=== PATIENT | male | born 1995 | race Caucasian/White ===

== ENCOUNTER 2019-10-16 21:08 | Inpatient (IN) | payer SELFPAY ==
[2019-10-16 21:12] VITALS: BP 143/111; PULSE 100; RESP 18; TEMP 36.7; O2SAT 100; BMI 21.7
--- NOTE | 2019-10-16 21:28 | PC.NURSE ---
Patient placed in psychiatric room in ER, all items removed from room for safety of patient. casework supervisor notified. No sitters at this time, transfill technician sitting with patient for his safety.
--- NOTE | 2019-10-16 21:32 | PC.NURSE ---
EKG done at 2126 and shown to ER doctor.
--- NOTE | 2019-10-16 21:33 | W.ED.PSYCH ---
HPI - Psych General: Chief Complaint: Psychiatric Symptoms Stated Complaint: SI Time Seen by Provider: 10/16/19 21:33 Source: patient History of Present Illness: HPI Narrative: 24-year-old male walked in on his own and says that he wants help because he feels like he does not want to live anymore. He told the triage nurse that he wanted to hang himself. The triage nurse will do an affidavit. He told me he did not have a plan but he is tried to hang himself in the past. He admits to IV drug use pot and does smoke cigarettes. Denies any hallucinations. Has not been on any prescription medication for many months. Has had a previous admission for suicidal ideations and on chart review appears that his plan was to hang himself. MD complaint: suicidal ideation Associated symptoms: Reports suicidal ideation Review of Systems General: Reports: 10 or more systems reviewed and unremarkable except in HPI and below Const: Denies: fever Eyes: Denies: change in vision ENMT: Denies: throat pain Card: Denies: chest pain Resp: Denies: shortness of breath GI: Denies: abdominal pain, nausea, vomiting or change in bowel habits Musc: Denies: muscle weakness Skin/Breast: Denies: rash Neuro: Denies: headache Psych: Reports: hopelessness and suicidal ideation Endo: Denies: excessive urination Misael/Lymph: Denies: easy bruising or easy bleeding All/Imm: Denies: hives PFSH ED PFSH: Social History Smoking and tobacco status: current every day smoker Physical Exam Const: COMMON NORMALS: no apparent distress, oriented x3, alert and well nourished HENMT: COMMON NORMALS: normocephalic and external nose normal HEAD & SCALP: normocephalic NOSE: external nose normal MOUTH: no trismus Eye: COMMON NORMALS: EOMs intact bilaterally and conjunctivae normal CONJUNCTIVA: Yes conjunctivae normal Neck/C-Spine: COMMON NORMALS: full ROM, no lymphadenopathy and supple CERVICAL SPINE: Yes cervical ROM normal Lymph: LYMPHATIC: no lymphadenopathy noted Resp: COMMON NORMALS: normal respiratory effort, no retractions, no use of accessory muscles and clear to auscultation bilaterally EFFORT & INSPECTION: Yes able to speak in complete sentences AUSCULTATION: clear to auscultation bilaterally Cardio: COMMON NORMALS: regular rate and regular rhythm RATE: regular rate RHYTHM: regular rhythm GI: COMMON NORMALS: normal to inspection, nondistended, normoactive bowel sounds, soft to palpation, non-tender and no masses INSPECTION: Yes normal to inspection AUSCULTATION: Yes normoactive bowel sounds PALPATION: Yes soft, No guarding and No rigid Back/Pelvis: OTHER: Normal range of motion Extremity: GENERAL: Yes normal exam except as noted Neuro: COMMON NORMALS: oriented x3 and CN's II-XII intact bilaterally SENSORIUM/ORIENTATION: Yes alert SPEECH: speech normal Psych: COMMON NORMALS: mental status grossly normal and speech normal ACTIVITY/MOTOR BEHAVIOR: Yes avoids eye contact SPEECH: Yes normal speech MOOD & AFFECT: Yes depressed mood Skin: COMMON NORMALS: no rashes or lesions noted GENERAL SKIN EXAM: no rashes or lesions noted MDM - Psych MDM Narrative: Medical decision making narrative: Discussed with Dr. Dalton will admit. Patient is medically clear and stable for admission from my point of view. Patient is voluntary however there is an affidavit from the triage nurse on the chart. Lab Data: Labs: Lab Results 10/16/19 10/16/19 Range/Units 21:52 21:52 WBC 11.2 H (4.0-10.0) 10^3/ uL RBC 4.48 (4.1-5.3) 10^6/u L Hgb 12.4 (11.7-16.6) g/dL Hct 38.9 L (42.0-52.0) % MCV 86.8 (80-94) fL MCH 27.7 L (28.0-34.0) pg MCHC 31.9 (30.0-36.0) g/dL RDW 14.2 (12.1-15.1) % Plt Count 332 (130-400) 10^3/c mm MPV 10.4 (7.4-10.4) fL Neut % (Auto) 62.8 % Lymph % (Auto) 26.5 % [place] % (Auto) 6.6 % Eos % (Auto) 2.8 % Baso % (Auto) 0.6 % Neut # (Auto) 7.1 (1.8-7.7) 10^3/u L Lymph # (Auto) 3.0 (0.8-4.8) 10^3/u L [place] # (Auto) 0.7 (0.2-0.9) 10^3/u L Eos # (Auto) 0.3 (0.0-0.8) 10^3/u L Baso # (Auto) 0.1 (0.0-0.1) 10^3/u L Nucleated RBC % (a uto) 0 % Nucleated RBCs # 0.0 /100WBC Sodium 143 (136-145) mmol/L Potassium 4.1 (3.5-5.1) mmol/L Chloride 105 (98-107) mmol/L Carbon Dioxide 27 (22-29) mmol/L Anion Gap 15.1 (5-19) BUN 12 (6-20) mg/dL Creatinine 0.9 (0.7-1.2) mg/dL GFR Calculation 102.8 (90-130) mL/min Glucose 121 H (65-115) mg/dL Calculated Osmolal ity 293 (285-295) mOsm/k g Calcium 9.1 (8.5-10.5) mg/dL Total Bilirubin 0.2 (0.15-1.2) mg/dL AST 26 (0-40) U/L ALT 36 (0-41) U/L Alkaline Phosphata se 103 (40-130) IU/L Total Protein 6.7 (6.6-8.7) g/dL Albumin 3.7 (3.5-5.2) g/dL Globulin 3.0 (1.3-4.6) g/dL TSH 1.76 (0.27-4.20) uIU/ mL Ethyl Alcohol < 10 (0-10) mg/dL EKG Data^: EKG 1: Attestation: I personally reviewed and interpreted this EKG as follows: EKG interpretation date: 10/16/19 EKG interpretation time: 21:44 Interpretation: Sinus rhythm rate 94 normal VA interval Discharge Plan Discharge Patient Disposition: Admitted As Inpatient Clinical Impression: Suicidal ideation Condition: Stable Prescriptions: No Action Cough and Cold [phone] mg Capsule 2 cap PO Q4H PRN (Reason: COUGH/CONGESTION) RF: 0 Coding Level of Care Code ED Rn Telephone Triage for Chg Fwd Exam Comprehensive
[2019-10-16 22:00] LABS: Basophils # 0.1 10^3/uL (0.0-0.1); Basophils % 0.6 %; Eosinophils # 0.3 10^3/uL (0.0-0.8); Eosinophils % 2.8 %; Hematocrit 38.9 % (42.0-52.0); Hemoglobin 12.4 g/dL (11.7-16.6); Lymphocytes % 26.5 %; Mean Corpuscular HGB Conc 31.9 g/dL (30.0-36.0); Mean Corpuscular Hemoglobin 27.7 pg (28.0-34.0); Mean Corpuscular Volume 86.8 fL (80-94); Mean Platelet Volume 10.4 fL (7.4-10.4); Monocytes # 0.7 10^3/uL (0.2-0.9); Monocytes % 6.6 %; Neutrophils # 7.1 10^3/uL (1.8-7.7); Neutrophils % 62.8 %; Nucleated Red Blood Cells % 0 %; Platelet Count 332 10^3/cmm (130-400); Red Blood Count 4.48 10^6/uL (4.1-5.3); Red Cell Distribution Width 14.2 % (12.1-15.1); White Blood Count 11.2 10^3/uL (4.0-10.0)
[2019-10-16 22:08] VITALS: BP 131/87; PULSE 107; RESP 19; TEMP 36.8; O2SAT 99
[2019-10-16 22:24] LABS: Alanine Aminotransferase 36 U/L (0-41); Albumin Level 3.7 g/dL (3.5-5.2); Alcohol Level < 10 mg/dL (0-10); Alkaline Phosphatase 103 IU/L (40-130); Anion Gap 15.1 (5-19); Aspartate Amino Transferase 26 U/L (0-40); Blood Urea Nitrogen 12 mg/dL (6-20); Calcium 9.1 mg/dL (8.5-10.5); Carbon Dioxide 27 mmol/L (22-29); Chloride 105 mmol/L (98-107); Creatinine Clr Calc Pharmacy 134.1489; Glomerular Filtration Rate 102.8 mL/min (90-130); Glucose 121 mg/dL (65-115); Osmolality Calculated 293 mOsm/kg (285-295); Potassium 4.1 mmol/L (3.5-5.1); Sodium 143 mmol/L (136-145); Thyroid Stimulating Hormone 1.76 uIU/mL (0.27-4.20); Total Bilirubin 0.2 mg/dL (0.15-1.2); Total Protein 6.7 g/dL (6.6-8.7)
[2019-10-16 22:42] LABS: Amphetamines Screen Urine Positive (Negative); Barbiturates Screen Urine Negative (Negative); Benzodiazepines Screen Urine Negative (Negative); Cocaine Screen Urine Negative (Negative); Opiate Screen Urine Negative (Negative); PCP Screen Urine Negative (Negative); THC Screen Urine Positive (Negative)
[2019-10-16] MEDS: acetaminophen 325 mg Tablet 650 MG PO (22:49)
[2019-10-17 06:00] VITALS: BP 128/80; PULSE 73; RESP 18; TEMP 36.6; O2SAT 99
--- NOTE | 2019-10-17 08:20 | P.HP_ITS ---
Providers/Chief Complaint Admitting Physician: Giorgi Dalton MD Chief Complaint: SI HPI NPU History of Present Illness 24-year-old male who walked in on his own desiring help because he does not want to live anymore. He told the triage nurse that he wanted to hang himself. The triage nurse will do an affidavit. He told the ED physician he did not have a plan but he has tried to hang himself in the past. 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 Has not been on any prescription medication for many months. Has had a previous admission for suicidal ideation and on chart review appears that his plan was to hang himself. The patient says today he had the same plan. He feels hopeless. 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 He may be exhibiting psychotic symptoms on the job. He says he hears people in [employer] telling him he is crazy and believes that people are following him. For example, he thought that people were outside my office door, which I opened and no one was there. Review of Systems Narrative: Const: Denies: fever Eyes: Denies: change in vision ENMT: Denies: throat pain Card: Denies: chest pain Resp: Denies: shortness of breath GI: Denies: abdominal pain, nausea, vomiting or change in bowel habits Musc: Denies: muscle weakness Skin/Breast: Denies: rash Neuro: Denies: headache Psych: Reports: hopelessness and suicidal ideation Endo: Denies: excessive urination Misael/Lymph: Denies: easy bruising or easy bleeding All/Imm: Denies: hives Urologic symptoms are present. The patient's urine has blood red and smells intent . He denies pain or burning on urination. Microscopic examination confirms this with white cell casts, WBC, RBC and bacteria. Meds NPU Home Medications Medication Instructions Recorded Confirmed Type duvllbwen-SA-IF-acetaminophen 2 cap PO Q4H PRN 10/16/19 10/16/19 History [Cough and Cold] Allergies Allergy/AdvReac Type Severity Reaction Status Date / Time alvarez Allergy ALGY-Anaphy Verified 10/16/19 21:24 laxis alvarez flavor Allergy ALGY-Anaphy Verified 10/16/19 21:24 laxis PFS NPU PFS: Social History Smoking and tobacco status: current every day smoker Other Psychiatric History: Other Psychiatric History: The patient said he was hospitalized for suicidal ideation and depressions in 2016. His psychotic symptoms (auditory hallucinations and ideas of reference) arose some 5 months ago. He has intermittently been on meth. Because his psychotic symptoms are persistent he does not believe the meth, being available intermittently, has anything to do with his psychosis. I respectfully disagree with him Supplemental [facility] Information: The patient states that meth abuse is widespread in his family. Mental Status Exam MSE Comments: This is a 24-year-old male who looks older and presents disheveled and mildly psychotic. Mood is clearly despondent and affect is flat. Thought processes appear to be disorganized and he does have very mild pressure of speech. Psychotic symptoms, such as auditory hallucinations of critical voices telling him he is crazy, plague him. He constantly feels like someone is following him and, during the interview, thought there was someone outside my office door listening to our interview. He was relieved when I opened the door and there was no one there. Cognitive functions actually, absent psychosis, are quite good although it was difficult to formally test. Insight is limited at the moment but he had the judgment to come in to the ED to seek help. He still thinks about hanging in himself but thinks he can keep himself safe in our [place]. I have reviewed this with the nursing staff, who will be watchful. Vitals/I&O/Wt Last Vital Signs Temp 97.9 F 10/17/19 06:00 Pulse 73 10/17/19 06:00 Resp 18 10/17/19 06:00 BP 128/80 10/17/19 06:00 Pulse Ox 99 10/17/19 06:00 Weight last 48 hrs Weight 160 lb Physical Exam Narrative: EXAM NARRATIVE: COMMON NORMALS: no apparent distress, oriented x3, alert and well nourished HENMT: COMMON NORMALS: normocephalic and external nose normal HEAD & SCALP: normocephalic NOSE: external nose normal MOUTH: no trismus Eye: COMMON NORMALS: EOMs intact bilaterally and conjunctivae normal CONJUNCTIVA: Yes conjunctivae normal Neck/C-Spine: COMMON NORMALS: full ROM, no lymphadenopathy and supple CERVICAL SPINE: Yes cervical ROM normal Lymph: LYMPHATIC: no lymphadenopathy noted Resp: COMMON NORMALS: normal respiratory effort, no retractions, no use of accessory muscles and clear to auscultation bilaterally EFFORT & INSPECTION: Yes able to speak in complete sentences AUSCULTATION: clear to auscultation bilaterally Cardio: COMMON NORMALS: regular rate and regular rhythm RATE: regular rate RHYTHM: regular rhythm GI: COMMON NORMALS: normal to inspection, nondistended, normoactive bowel sounds, soft to palpation, non-tender and no masses INSPECTION: Yes normal to inspection AUSCULTATION: Yes normoactive bowel sounds PALPATION: Yes soft, No guarding and No rigid Back/Pelvis: OTHER: Normal range of motion Extremity: GENERAL: Yes normal exam except as noted Neuro: COMMON NORMALS: oriented x3 and CN's II-XII intact bilaterally SENSORIUM/ORIENTATION: Yes alert SPEECH: speech normal Psych: See MSE. Skin: COMMON NORMALS: no rashes or lesions noted GENERAL SKIN EXAM: no rashes or lesions noted Data NPU : 10/16/19 21:52 10/16/19 21:52 A&P Assessment and plan (1) Suicidal ideation: This problem is, of course, very likely meth induced. He needs to be detoxed and pharmacotherapy for his psychosis and depression should be invoked. He will be involved in [facility]. administrative services coordinator will assist in formulating a discharge plan which includes rehab services and psychiatric outpatient aftercare. I have chosen antipsychotics which are inexpensive, very important element in this penniless man. Status: Acute Code(s): R45.851 - Suicidal ideations (2) Methamphetamine abuse: The patient will require rehab. Psychosocial intervention will also be necessary. Status: Acute Code(s): F15.10 - Other stimulant abuse, uncomplicated (3) Major psychotic depression, recurrent: This problem is, of course, very likely meth induced. His recurrent suicidal ideation arises from this. He needs to be detoxed and pharmacotherapy for his psychosis and depression should be invoked. He will be involved in [facility]. administrative services coordinator will assist in formulating a discharge plan which includes rehab services and psychiatric outpatient aftercare. I have chosen antipsychotics which are inexpensive, very important element in this penniless man. Status: Acute Code(s): F33.3 - Major depressive disorder, recurrent, severe with psychotic symptoms Involuntary Hold Information 96 Hour Hold: 96 Hour Involuntary Admission: No Comments: An affidavit for 96-hour hold application was made out by the ED triage nurse. Attestations NPU Medical Necessity Statement*: This man is psychotically depressed. I anticipate 5-7 midnights. Time Spent in Patient Care: Greater than 35 minutes (>than 50% of time spent in counselling and/or direct pt care on unit) . I also did research on pharmacologic agents and patient education. Coding Level of Care Code Acute Duck Bill Operator for Ronni Bazan Diagnoses Suicidal ideation R45.851 Methamphetamine abuse F15.10 Major psychotic depression, recurrent F33.3
[2019-10-17] MEDS: OLANZapine ODT 5 MG TABLET PO ×2 (08:27→14:13)
[2019-10-17] MEDS: sulfamethoxazole-trimeth DS 160-800 mg Tablet 1 TAB PO ×2 (08:27→17:56)
[2019-10-17] MEDS: nicotine 21 mg Patch 1 PATCH TRANSDERMA (08:32)
[2019-10-17] MEDS: fluoxetine 20 mg Capsule PO (09:17)
[2019-10-17 14:00] VITALS: BP 123/78; PULSE 80; RESP 17
[2019-10-17] MEDS: OLANZapine 5 mg TABLET 7.5 MG PO (20:42)
[2019-10-17 22:00] VITALS: BP 132/91; PULSE 71; RESP 15; TEMP 36.4; O2SAT 99
[2019-10-18 06:00] VITALS: BP 135/90; PULSE 79; RESP 16; TEMP 36.6; O2SAT 99
[2019-10-18] MEDS: sulfamethoxazole-trimeth DS 160-800 mg Tablet 1 TAB PO ×2 (08:25→17:31)
[2019-10-18] MEDS: OLANZapine ODT 5 MG TABLET PO (13:14)
[2019-10-18] MEDS: nicotine 21 mg Patch 1 PATCH TRANSDERMA (13:14)
[2019-10-18] MEDS: benztropine 1 mg Tablet PO (13:40)
[2019-10-18 14:00] VITALS: BP 147/82; PULSE 97; RESP 17
--- NOTE | 2019-10-18 14:10 | PM.NPN ---
Subjective NPU Subjective: Interval history: The patient is transformed. He slept?and slept and slept. Now, his mind is clear and the fog has lifted. He knows that recovery is the only option and he plans to continue his care at [facility] with the psychiatric nurse practitioner with whom he had a previous treatment relationship. 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 What with the current epidemiologic situation, that may be on hold as far as [facility] is concerned. In any case he is improved greatly and tomorrow formulation of a discharge plan should be undertaken Medications: Reviewed: Yes Medication Review Details: Current Medications Acetaminophen (Tylenol) 650 mg PO Q4H PRN PRN Reason: MILD PAIN Benztropine Mesylate (Cogentin) 1 mg PO BID PRN PRN Reason: Mild Extrapyramidal symptoms Last Admin: 10/18/19 13:40 Dose: 1 mg Documented by: Camphor/Menthol/Phenol (Blistex) 1 applic TOPICAL Q1H PRN PRN Reason: DRYNESS Diphenhydramine HCl (Benadryl) 50 mg IM ONCE PRN PRN Reason: Severe Extrapyramidal Symptoms Diphenhydramine HCl (Benadryl) 50 mg IM Q4H PRN PRN Reason: Severe Aggression Haloperidol (Haldol) 5 mg PO Q4H PRN PRN Reason: AGITATION Haloperidol Lactate (Haldol Inj) 5 mg IM Q4H PRN PRN Reason: Severe Aggression Hydroxyzine Pamoate (Vistaril) 50 mg PO Q6H PRN PRN Reason: ANXIETY Loperamide HCl (Imodium Capsule) 2 mg PO Q6H PRN PRN Reason: DIARRHEA Lorazepam (Ativan) 2 mg IM Q4H PRN PRN Reason: Severe Aggression Nicotine (Nicoderm 21 Mg Patch) 1 patch TRANSDERMA DAILY PRN PRN Reason: NICOTINE WITHDRAWAL Last Admin: 10/18/19 13:14 Dose: 1 patch Documented by: Nicotine Polacrilex (Nicorette) 2 mg BUCCAL Q2H PRN PRN Reason: NICOTINE WITHDRAWAL Non-Formulary Medication (Lobhkxkww-Ad-Ps-Acetaminophen [Cough And Cold]) 2 cap PO Q4H PRN PRN Reason: COUGH/CONGESTION Olanzapine (Zyprexa Zydis) 5 mg PO Q4H PRN PRN Reason: Agitation/Psychosis Last Admin: 10/18/19 13:14 Dose: 5 mg Documented by: Olanzapine (Zyprexa) 7.5 mg PO BEDTIME GILDA Last Admin: 10/17/19 20:42 Dose: 7.5 mg Documented by: Ondansetron HCl (Zofran) 4 mg PO Q6H PRN PRN Reason: NAUSEA AND VOMITING Trazodone HCl (Desyrel) 50 mg PO BEDTIME PRN PRN Reason: SLEEP Trimethoprim/Sulfamethoxazole (Bactrim Ds) 1 tab PO BID [facility]; Protocol Stop: 10/27/19 08:59 Last Admin: 10/18/19 08:25 Dose: 1 tab Documented by: Mental Status Exam MSE Comments: This is a 24-year-old male who presents at his stated age. He is clean, and neat and well-groomed. Mood is bright and affect is euthymic. Thought processes are integrated and free of racing, blocking or looseness of association. He is clear minded in contradistinction to his foggy mental state yesterday. Speech is of normal rate and volume, without aprosody, dysarthria or pressure. Cognitive functions have reconstituted. There is no confusion or disorientation. He is free of psychotic symptoms such as but not limited to hallucinations, delusions or ideas of reference. He denies suicidal or homicidal ideation, plan or intent. Insight and judgment are returning. Vitals/I&O/Wt Last Vital Signs Temp 97.8 F 10/18/19 06:00 Pulse 79 10/18/19 06:00 Resp 16 10/18/19 06:00 BP 135/90 10/18/19 06:00 Pulse Ox 99 10/18/19 06:00 Weight last 48 hrs Weight 154 lb Weight 160 lb Data NPU : 10/16/19 21:52 10/16/19 21:52 A&P Additional A&P Information Assessment and plan (1) Suicidal ideation: This problem is, of course, very likely meth induced. He is proceeding apace with detox and he is now on olanzapine 7.5 mg p.o. nightly for his psychosis but he does not want to take fluoxetine for his depression. He will be involved in [facility]. business services clerk will assist in formulating a discharge plan which includes rehab services and reinstatement of psychiatric outpatient aftercare. I have chosen an antipsychotic which is inexpensive, a very important element in this penniless man. (2) Methamphetamine abuse: The patient will pursue rehab. Psychosocial intervention will also be necessary. (3) Major psychotic depression, recurrent: This problem is, of course, very likely meth induced. His recurrent suicidal ideation arises from this. In addition to pharmacotherapy the patient will be involved in [facility]. business services clerk will assist in formulating a discharge plan which includes rehab services and psychiatric outpatient aftercare. I have chosen antipsychotics which are inexpensive, very important element in this penniless man. Involuntary Hold Information 96 Hour Hold: 96 Hour Involuntary Admission: No Attestations NPU Medical Necessity Statement*: I anticipate 2 or 3 additional midnights Coding Level of Care Code Acute Paint Mixer Hand for Ronni Bazan
[2019-10-18] MEDS: OLANZapine 5 mg TABLET 7.5 MG PO (21:27)
[2019-10-18] MEDS: acetaminophen 325 mg Tablet 650 MG PO (21:30)
[2019-10-18] MEDS: trazodone 50 mg Tablet PO (21:33)
[2019-10-18 22:00] VITALS: BP 133/91; PULSE 114; RESP 18; TEMP 36.9; O2SAT 99
[2019-10-19 06:00] VITALS: BP 129/83; PULSE 100; RESP 17; TEMP 36.6; O2SAT 98
[2019-10-19] MEDS: sulfamethoxazole-trimeth DS 160-800 mg Tablet 1 TAB PO ×2 (08:46→17:31)
[2019-10-19] MEDS: OLANZapine ODT 5 MG TABLET PO (08:47)
--- NOTE | 2019-10-19 08:47 | PC.NURSE ---
PRN ZYPREXA ZYDIS ZYPREXA ZYDIS 5MG PO PER PATIENT C/O ANXIETY/AGITATION. WILL CONTINUE TO MONITOR FOR MEDICATION EFFECTIVENESS.
--- NOTE | 2019-10-19 09:50 | PC.NURSE ---
PRN ZYPREXA ZYDIS FOLLOW UP MEDICATION EFFECTIVE. NO FURTHER C/O ANXIETY/AGITATION.
--- NOTE | 2019-10-19 10:21 | PM.NPN ---
Subjective NPU Subjective: Interval history: this is my first meeting with this patient. His history was reviewed. Works a positive response to Cymbalta in the past. However he denies symptoms of clinical depression. He says that he is sad and blue and he feels hopeless. He denies suicidal or homicidal ideation or auditory or visual hallucinations. His problem at this point is that he is homeless and unemployed. However he has been good hedonic capacity. He is sleeping well. His main complaint actually is one of chronic pain from tendinitis. Medications: Medication Review Details: Current Medications Acetaminophen (Tylenol) 650 mg PO Q4H PRN PRN Reason: MILD PAIN Benztropine Mesylate (Cogentin) 1 mg PO BID PRN PRN Reason: Mild Extrapyramidal symptoms Last Admin: 10/18/19 13:40 Dose: 1 mg Documented by: Camphor/Menthol/Phenol (Blistex) 1 applic TOPICAL Q1H PRN PRN Reason: DRYNESS Diphenhydramine HCl (Benadryl) 50 mg IM ONCE PRN PRN Reason: Severe Extrapyramidal Symptoms Diphenhydramine HCl (Benadryl) 50 mg IM Q4H PRN PRN Reason: Severe Aggression Haloperidol (Haldol) 5 mg PO Q4H PRN PRN Reason: AGITATION Haloperidol Lactate (Haldol Inj) 5 mg IM Q4H PRN PRN Reason: Severe Aggression Hydroxyzine Pamoate (Vistaril) 50 mg PO Q6H PRN PRN Reason: ANXIETY Loperamide HCl (Imodium Capsule) 2 mg PO Q6H PRN PRN Reason: DIARRHEA Lorazepam (Ativan) 2 mg IM Q4H PRN PRN Reason: Severe Aggression Nicotine (Nicoderm 21 Mg Patch) 1 patch TRANSDERMA DAILY PRN PRN Reason: NICOTINE WITHDRAWAL Last Admin: 10/18/19 13:14 Dose: 1 patch Documented by: Nicotine Polacrilex (Nicorette) 2 mg BUCCAL Q2H PRN PRN Reason: NICOTINE WITHDRAWAL Non-Formulary Medication (Ngtmpxjmu-Fb-Ar-Acetaminophen [Cough And Cold]) 2 cap PO Q4H PRN PRN Reason: COUGH/CONGESTION Olanzapine (Zyprexa Zydis) 5 mg PO Q4H PRN PRN Reason: Agitation/Psychosis Last Admin: 10/18/19 13:14 Dose: 5 mg Documented by: Olanzapine (Zyprexa) 7.5 mg PO BEDTIME GILDA Last Admin: 10/17/19 20:42 Dose: 7.5 mg Documented by: Ondansetron HCl (Zofran) 4 mg PO Q6H PRN PRN Reason: NAUSEA AND VOMITING Trazodone HCl (Desyrel) 50 mg PO BEDTIME PRN PRN Reason: SLEEP Trimethoprim/Sulfamethoxazole (Bactrim Ds) 1 tab PO BID [facility]; Protocol Stop: 10/27/19 08:59 Last Admin: 10/18/19 08:25 Dose: 1 tab Documented by: Mental Status Exam MSE Comments: Discharge Mental Status Exam: Appearance: hygiene is good; no gross neurological deficits., gait is unremarkable; AIMS=0 Speech: Speech is of normal rate and rhythm and easily understood. Thought processes: Thought processes are abstract. Judgment is adequate for safety. Associations: intact Psychotic processes: There is no indication of guarding or paranoia. There is no attention to the internal stimuli. Auditory and visual hallucinations are denied. Judgment: Insight is fair. Problem solving skills are poor but adequate for safety. Orientation: The patient is oriented to person, place time and situation. Memory: no deficits noted in immediate, intermediate, or remote spheres. Attention: The patient is alert and interpersonally engaged. Language: Verbalizations are coherent. Fund of knowledge: Fund of knowledge is poor Affect/Mood: Affect is consistent with a euthymic mood. denied suicidal ideation Affective range is appropriate. Psychosis: perception unimpaired except through cognitive distortion and cognitive deficit; reality testing intact. Cognition: Patient Appearance: Disheveled/Poor Hygiene Level of Consciousness: Awake, Alert, Appropriate and Follows Commands Patient Cognition Impaired: No Ability to Follow Directions: Good Patient Orientation (long list): Person and Place Comprehension Ability: No Impairment Hallucination Type: None Delusion Description: Not Present Thought Process: Appropriate Affect: Affect Description: Appropriate Depressive Symptoms: Feelings of Worthlessness, Hopelessness and Increased Anxiety Behavior: Patient Behavior: Appropriate and Withdrawn Speech Pattern: Appropriate and Clear Vitals/I&O/Wt Last Vital Signs Temp 97.8 F 10/19/19 06:00 Pulse 100 10/19/19 06:00 Resp 17 10/19/19 06:00 BP 129/83 10/19/19 06:00 Pulse Ox 98 10/19/19 06:00 Weight last 48 hrs Weight 69.853 kg Data NPU : 10/16/19 21:52 10/16/19 21:52 A&P Assessment and plan (1) Suicidal ideation: patient is no longer exhibiting signs of psychosis. Though he has a methamphetamine abuse disorder, his main problem is primarily psychosocial and residual symptoms of depression. He has been started on Cymbalta which has been helpful for depression in the past. It does not appear that his participation in outpatient substance abuse program will be as influential as him solving his problem of homelessness and unemployment. Status: Acute Code(s): R45.851 - Suicidal ideations (2) Methamphetamine abuse: patient is aware of outpatient rehabilitation programs. Methamphetamine abuse is being driven primarily by his homelessness and his lack of engagement and goal-directed self-esteem supporting activities. Status: Acute Code(s): F15.10 - Other stimulant abuse, uncomplicated (3) Major psychotic depression, recurrent: he does not meet criteria for clinical depression but has benefited from Cymbalta in the past. Will restart Cymbalta 30 mg daily and supplement that with trazodone 100 mg at bedtime. Status: Acute Code(s): F33.3 - Major depressive disorder, recurrent, severe with psychotic symptoms Additional A&P Information Assessment and plan (1) Suicidal ideation: resolved (2) Methamphetamine abuse: Psychosocial intervention will also be necessary. (3) Major psychotic depression, recurrent: patient is no longer exhibiting signs of psychosis. Though he has a methamphetamine abuse disorder, his main problem is primarily psychosocial and residual symptoms of depression. He has been started on Cymbalta which has been helpful for depression in the past. It does not appear that his participation in outpatient substance abuse program will be as influential as him solving his problem of homelessness and unemployment Involuntary Hold Information 96 Hour Hold: 96 Hour Involuntary Admission: No Attestations NPU Medical Necessity Statement*: patient will remain in the hospital another 2-3 nights until we know that he can tolerate current medication regimen and psychosocial interventions can be enacted. Coding Level of Care Code Acute Supervisor Waterproofing for Ronni Bazan Diagnoses Suicidal ideation R45.851 Methamphetamine abuse F15.10 Major psychotic depression, recurrent F33.3
[2019-10-19] MEDS: duloxetine 30 mg Capsule PO (10:41)
[2019-10-19] MEDS: LORazepam 0.5 mg Tablet PO (13:00)
--- NOTE | 2019-10-19 13:01 | PC.NURSE ---
Addendum entered by An Johnston LPN 10/19/19 13:40: MEDICATION EFFECTIVE. NO FURTHER C/O ANXIETY. PATIENT IS LYING IN BED RESTING. RESPIRATIONS EVEN AND UNLABORED. Original Note: PRN ATIVAN ATIVAN 0.5MG PO PER PT C/O ANXIETY. WILL CONTINUE TO MONITOR FOR MEDICATION EFFECTIVENESS.
[2019-10-19 14:00] VITALS: BP 137/89; PULSE 106; RESP 20; TEMP 36.4; O2SAT 96
[2019-10-19] MEDS: nicotine 21 mg Patch 1 PATCH TRANSDERMA (17:30)
[2019-10-19 20:20] VITALS: BP 125/82; PULSE 92; RESP 19; TEMP 36.6; O2SAT 97
[2019-10-19] MEDS: trazodone 100 mg Tablet PO (20:37)
[2019-10-20 06:00] VITALS: BP 141/90; PULSE 80; RESP 17; TEMP 36.7; O2SAT 99
[2019-10-20] MEDS: sulfamethoxazole-trimeth DS 160-800 mg Tablet 1 TAB PO ×2 (08:02→17:15)
[2019-10-20] MEDS: duloxetine 30 mg Capsule PO (08:02)
--- NOTE | 2019-10-20 08:05 | ECG_ITS ---
Measurements Intervals [place] Rate: 114 P: 65 NE: 125 QRS: 30 QRSD: 80 T: 68 QT: 304 QTc: 420 SINUS TACHYCARDIA POSSIBLE RIGHT ATRIAL ENLARGEMENT [0.25mV P WAVE] POSSIBLE LEFT ATRIAL ENLARGEMENT [-0.1mV P WAVE IN V1/V2] NONSPECIFIC T-WAVE ABNORMALITY Compared to ECG 01/12/2019 23:11:32 T-wave abnormality now present Sinus rhythm no longer present Electronically Signed On 10-20-2019 12:45:22 CDT by Liliam Joy M.D. [email or web address]
[2019-10-20 08:06] VITALS: PULSE 80
--- NOTE | 2019-10-20 08:08 | PC.NURSE ---
PT NOTE: PATIENT UP AT NURSES STATION WITH C/O CHEST PAIN. INFORMED PHYSICIAN, ORDERS RECEIVED.
--- NOTE | 2019-10-20 08:18 | PC.NURSE ---
PT NOTE: INFORMED RT VIA TELEPHONE OF EKG ORDER
[2019-10-20] MEDS: LORazepam 0.5 mg Tablet PO ×3 (08:55→20:27)
--- NOTE | 2019-10-20 08:55 | PC.NURSE ---
PRN ATIVAN ATIVAN 0.5MG PO PER PATIENT C/O ANXIETY. WILL CONTINUE TO MONITOR FOR MEDICATION EFFECTIVENESS.
--- NOTE | 2019-10-20 10:00 | PC.NURSE ---
PRN ATIVAN FOLLOW UP MEDICATION EFFECTIVE. NO FURTHER C/O ANXIETY.
[2019-10-20] MEDS: CLONazepam 0.5 mg Tablet PO (11:32)
--- NOTE | 2019-10-20 12:39 | P.PN_ITS ---
Subjective NPU Subjective: Interval history: pt coninues ot provide a list of somatic complaints that are difficult to inerpret: it hurst up thorugh here pointing ot his chest, which is different from the pain he was describing earlier when his HR = 114. He describes buring sensation but no radiation. Occassionally he gets light headed but does not pass out. Sometimes he cannot sleep and will wake up with SOB. He will not get back to sleep and will go out and walk around the neighborhood for an hour to get back to sleep. . Medications: Medication Review Details: Current Medications Acetaminophen (Tylenol) 650 mg PO Q4H PRN PRN Reason: MILD PAIN Benztropine Mesylate (Cogentin) 1 mg PO BID PRN PRN Reason: Mild Extrapyramidal symptoms Last Admin: 10/18/19 13:40 Dose: 1 mg Documented by: Camphor/Menthol/Phenol (Blistex) 1 applic TOPICAL Q1H PRN PRN Reason: DRYNESS Diphenhydramine HCl (Benadryl) 50 mg IM ONCE PRN PRN Reason: Severe Extrapyramidal Symptoms Diphenhydramine HCl (Benadryl) 50 mg IM Q4H PRN PRN Reason: Severe Aggression Haloperidol (Haldol) 5 mg PO Q4H PRN PRN Reason: AGITATION Haloperidol Lactate (Haldol Inj) 5 mg IM Q4H PRN PRN Reason: Severe Aggression Hydroxyzine Pamoate (Vistaril) 50 mg PO Q6H PRN PRN Reason: ANXIETY Loperamide HCl (Imodium Capsule) 2 mg PO Q6H PRN PRN Reason: DIARRHEA Lorazepam (Ativan) 2 mg IM Q4H PRN PRN Reason: Severe Aggression Nicotine (Nicoderm 21 Mg Patch) 1 patch TRANSDERMA DAILY PRN PRN Reason: NICOTINE WITHDRAWAL Last Admin: 10/18/19 13:14 Dose: 1 patch Documented by: Nicotine Polacrilex (Nicorette) 2 mg BUCCAL Q2H PRN PRN Reason: NICOTINE WITHDRAWAL Non-Formulary Medication (Oiiyovrns-Rp-Gy-Acetaminophen [Cough And Cold]) 2 cap PO Q4H PRN PRN Reason: COUGH/CONGESTION Olanzapine (Zyprexa Zydis) 5 mg PO Q4H PRN PRN Reason: Agitation/Psychosis Last Admin: 10/18/19 13:14 Dose: 5 mg Documented by: Olanzapine (Zyprexa) 7.5 mg PO BEDTIME GILDA Last Admin: 10/17/19 20:42 Dose: 7.5 mg Documented by: Ondansetron HCl (Zofran) 4 mg PO Q6H PRN PRN Reason: NAUSEA AND VOMITING Trazodone HCl (Desyrel) 50 mg PO BEDTIME PRN PRN Reason: SLEEP Trimethoprim/Sulfamethoxazole (Bactrim Ds) 1 tab PO BID [facility]; Protocol Stop: 10/27/19 08:59 Last Admin: 10/18/19 08:25 Dose: 1 tab Documented by: Mental Status Exam MSE Comments: Discharge Mental Status Exam: Appearance: hygiene is good; no gross neurological deficits., gait is unremarkable; AIMS=0 Speech: Speech is of normal rate and rhythm and easily understood. Thought processes: Thought processes are abstract. Judgment is adequate for safety. Associations: intact Psychotic processes: There is no indication of guarding or paranoia. There is no attention to the internal stimuli. Auditory and visual hallucinations are denied. Judgment: Insight is fair. Problem solving skills are poor but adequate for safety. Orientation: The patient is oriented to person, place time and situation. Memory: no deficits noted in immediate, intermediate, or remote spheres. Attention: The patient is alert and interpersonally engaged. Language: Verbalizations are coherent. Fund of knowledge: Fund of knowledge is poor Affect/Mood: Affect is consistent with a euthymic mood. denied suicidal ideation Affective range is appropriate. Psychosis: perception unimpaired except through cognitive distortion and cognitive deficit; reality testing intact. Cognition: Patient Appearance: Disheveled/Poor Hygiene Level of Consciousness: Awake, Alert, Appropriate and Follows Commands Patient Cognition Impaired: No Ability to Follow Directions: Good Patient Orientation (long list): Person and Place Comprehension Ability: No Impairment Hallucination Type: None Delusion Description: Not Present Thought Process: Appropriate Affect: Affect Description: Appropriate and Calm Depressive Symptoms: Feelings of Worthlessness, Hopelessness and Increased Anxiety Behavior: Patient Behavior: Appropriate and Withdrawn Speech Pattern: Appropriate and Clear Vitals/I&O/Wt Last Vital Signs Temp 98.0 F 10/20/19 06:00 Pulse 80 10/20/19 06:00 Resp 17 10/20/19 06:00 BP 141/90 10/20/19 06:00 Pulse Ox 99 10/20/19 06:00 Selected Entries 10/16/19 21:12 10/16/19 22:08 10/17/19 06:00 Pulse Rate 107 H 73 Pulse Rate [Monitor] 100 Blood Pressure 131/87 128/80 Blood Pressure [Left Arm] 143/111 10/17/19 14:00 10/17/19 22:00 10/18/19 06:00 Pulse Rate 80 71 79 Pulse Rate [Monitor] Blood Pressure 123/78 132/91 135/90 Blood Pressure [Left Arm] 10/18/19 22:00 10/19/19 14:00 10/19/19 20:20 Pulse Rate 114 H 106 H 92 Pulse Rate [Monitor] Blood Pressure 133/91 137/89 125/82 Blood Pressure [Left Arm] 10/20/19 06:00 Pulse Rate 80 Pulse Rate [Monitor] Blood Pressure 141/90 Blood Pressure [Left Arm] ECG shows sinus tachycardia at 114. [place] eptqdout=[id number]. Nonspecific T-wave abnormality. Data NPU : 10/16/19 21:52 10/16/19 21:52 A&P Assessment and plan (1) Suicidal ideation: patient is no longer exhibiting signs of psychosis or suicidal ideation He has been started on Cymbalta which has been helpful for depression in the past. It does not appear that his participation in outpatient substance abuse program will be as influential as him solving his problem of homelessness and unemployment. Status: Acute Code(s): R45.851 - Suicidal ideations (2) Methamphetamine abuse: patient is aware of outpatient rehabilitation programs. Methamphetamine abuse is being driven primarily by his homelessness and his lack of engagement and goal-directed self-esteem supporting activities. Status: Acute Code(s): F15.10 - Other stimulant abuse, uncomplicated (3) Major psychotic depression, recurrent: he does not meet criteria for clinical depression but has benefited from Cymbalta in the past. Will restart Cymbalta 30 mg daily and supplement that with trazodone 100 mg at bedtime. Status: Acute Code(s): F33.3 - Major depressive disorder, recurrent, severe with psychotic symptoms (4) Panic disorder: Trial of clonazepam 0.5 mg to assess tolerability. Will repeat ECG to assess in non-symptomatic state and decide whether acute hospitalist assessment is necessary. Status: Acute Code(s): F41.0 - Panic disorder [episodic paroxysmal anxiety] Additional A&P Information Assessment and plan (1) Suicidal ideation: resolved (2) Methamphetamine abuse: Psychosocial intervention will also be necessary. (3) Major psychotic depression, recurrent: patient is no longer exhibiting signs of psychosis. Though he has a methamphetamine abuse disorder, his main problem is primarily psychosocial and residual symptoms of depression. He has been started on Cymbalta which has been helpful for depression in the past. It does not appear that his participation in outpatient substance abuse program will be as influential as him solving his problem of homelessness and unemployment Involuntary Hold Information 96 Hour Hold: 96 Hour Involuntary Admission: No Attestations NPU Medical Necessity Statement*: pt to stay another 3-4 nights to assess medication toelratbility and efficacy. Coding Level of Care Code Acute Medical Historian for Ronni Bazan Diagnoses Suicidal ideation R45.851 Methamphetamine abuse F15.10 Major psychotic depression, recurrent F33.3 Panic disorder F41.0
[2019-10-20 14:00] VITALS: BP 133/71; PULSE 126; RESP 18; TEMP 36.9; O2SAT 97
--- NOTE | 2019-10-20 15:27 | PC.NURSE ---
PRN ATIVAN ATIVAN 0.5MG PO PER PATIENT C/O ANXIETY. WILL CONTINUE TO MONITOR FOR MEDICATION EFFECTIVENESS.
[2019-10-20] MEDS: nicotine 21 mg Patch 1 PATCH TRANSDERMA (17:28)
[2019-10-20] MEDS: trazodone 100 mg Tablet PO (20:25)
[2019-10-20 22:00] VITALS: BP 124/90; PULSE 130; RESP 19; TEMP 36.9; O2SAT 95
--- NOTE | 2019-10-20 22:53 | PC.NURSE ---
Pt c/o feeling slightly anxious and requested prn with bedtime meds. Medicated with Ativan 0.5mg po per prn order. Pt went to bed shortly after and appears to be resting comfortably with eyes closed. Respirations even and unlabored
[2019-10-21] MEDS: LORazepam 0.5 mg Tablet PO ×2 (05:28→13:35)
[2019-10-21 05:31] VITALS: BP 129/74; PULSE 137; RESP 22; TEMP 36.6; O2SAT 96
--- NOTE | 2019-10-21 06:13 | PC.NURSE ---
Pt up to desk at 0528 c/o anxiety. HR in 130s. Medicated with Ativan 0.5mg po per prn order. Pt returned to his room and fell asleep in his bed. Appears to be resting comfortably with his eyes closed. Respirations even and unlabored
[2019-10-21] MEDS: duloxetine 30 mg Capsule PO (08:11)
[2019-10-21] MEDS: sulfamethoxazole-trimeth DS 160-800 mg Tablet 1 TAB PO (08:11)
[2019-10-21] MEDS: propranolol 20 mg Tablet PO (09:04)
--- NOTE | 2019-10-21 10:39 | PM.NDC ---
Diagnoses at Discharge Discharge Diagnosis (1) Suicidal ideation: Status: Resolved (2) Methamphetamine abuse: Status: Acute (3) Major psychotic depression, recurrent: Status: Acute (4) Panic disorder: Status: Acute Reason for Visit Reason for Visit: Reason For Visit: SI Hospital Course Hospital Course To presented to the emergency room reporting lethality and thoughts to hang himself with a past history of suicide attempt by hanging. He was admitted to the neuropsychiatric unit and quickly acclimated to the individual, group and milieu therapies provided. He was started on Cymbalta and trazodone and had a positive response to those medications. During the hospitalization he had routine laboratory studies which were within normal limits except for a few outliers. Additionally he had a general medical evaluation which was also within normal limits and revealed no new acute processes. Discharge Summary This is for Oct 21 2019. I keep getting urgent warnings that I am delinquent in this document. The EMR will not allow me to date it for 09/22/2019. So I am putting it here so at least it [place] [address] Discharge Summary Signed Patient: To MalhotraMR#: [id number] : 1995Acct#:[id number] Age/Sex: 24 / MADM Date: 10/24/19 Loc: ERRoom/Bed: Encounter Date: 11/17/[address]: Report Number: [id number] Reason for Visit Reason for Visit: Reason For Visit: SI Hospital Course Discharge Summary To Malhotra HPI: 24-year-old male who walked in on his own desiring help because he does not want to live anymore. He told the triage nurse that he wanted to hang himself. The triage nurse will do an affidavit. He told the ED physician he did not have a plan but he has tried to hang himself in the past. 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 Has not been on any prescription medication for many months. Has had a previous admission for suicidal ideation and on chart review appears that his plan was to hang himself. The patient says today he had the same plan. He feels hopeless. 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 He may be exhibiting psychotic symptoms on the job. He says he hears people in [employer] telling him he is crazy and believes that people are following him. For example, he thought that people were outside my office door, which I opened and no one was there. Hospital Course: The patient was admitted to the psychiatric unit provided supportive environment with the availability of nursing staff. He received an initial psychiatric evaluation by the psychiatrist on duty. He was engaged in the individual and group therapies as part of the results psychiatric protocol. His psychosis resolved without significant medication intervention indicating that psychosis was likely a complication of his amphetamine abuse. He was also noted that he had a urinary tract infection which may have also been having mental status complications. (1) Suicidal ideation: patient is no longer exhibiting signs of psychosis or suicidal ideation He has been started on Cymbalta which has been helpful for depression in the past. It does not appear that his participation in outpatient substance abuse program will be as influential as him solving his problem of homelessness and unemployment. Status: Acute Code(s): R45.851 - Suicidal ideations (2) Methamphetamine abuse: patient is aware of outpatient rehabilitation programs. Methamphetamine abuse is being driven primarily by his homelessness and his lack of engagement and goal-directed self-esteem supporting activities. Status: Acute Code(s): F15.10 - Other stimulant abuse, uncomplicated (3) Major psychotic depression, recurrent: he does not meet criteria for clinical depression but has benefited from Cymbalta in the past. Will restart Cymbalta 30 mg daily and supplement that with trazodone 100 mg at bedtime. Status: Acute Code(s): F33.3 - Major depressive disorder, recurrent, severe with psychotic symptoms (4) Panic disorder: Trial of clonazepam 0.5 mg to assess tolerability. Will repeat ECG to assess in non-symptomatic state and decide whether acute hospitalist assessment is necessary. Status: Acute Code(s): F41.0 - Panic disorder [episodic paroxysmal anxiety] Additional A&P Information Assessment and plan (1) Suicidal ideation: resolved (2) Methamphetamine abuse: Psychosocial intervention will also be necessary. (3) Major psychotic depression, recurrent: patient is no longer exhibiting signs of psychosis. Though he has a methamphetamine abuse disorder, his main problem is primarily psychosocial and residual symptoms of depression. He has been started on Cymbalta which has been helpful for depression in the past. It does not appear that his participation in outpatient substance abuse program will be as influential as him solving his problem of homelessness and unemployment Discharge mental status: This is a 24-year-old male who presents at his stated age. He is clean, and neat and well-groomed. Mood is bright and affect is euthymic. Thought processes are integrated and free of racing, blocking or looseness of association. He is clear minded in contradistinction to his foggy mental state yesterday. Speech is of normal rate and volume, without aprosody, dysarthria or pressure. Cognitive functions have reconstituted. There is no confusion or disorientation. He is free of psychotic symptoms such as but not limited to hallucinations, delusions or ideas of reference. He denies suicidal or homicidal ideation, plan or intent. Insight and judgment are returning. Involuntary Hold Information 96 Hour Hold: 96 Hour Involuntary Admission: No Discharge Data Vitals: Last Vital Signs Temp 97.5 F L 10/21/19 13:53 Pulse 95 10/21/19 13:53 Resp 18 10/21/19 13:53 BP 118/79 10/21/19 13:53 Pulse Ox 98 10/21/19 13:53 Discharge Plan Discharge Patient Disposition: Home, Self-Care Condition: Stable Prescriptions: New trazodone 100 mg Tablet 100 mg PO BEDTIME Qty: 30 RF: 4 duloxetine 30 mg Capsule,Delayed Release(Dr/Ec) 30 mg PO DAILY Qty: 30 RF: 4 Discontinued Cough and Cold [id number] mg Capsule 2 cap PO Q4H PRN (Reason: COUGH/CONGESTION) RF: 0 No Action ondansetron HCl [Zofran] 4 mg tablet 4 mg PO Q6H PRN (Reason: nausea and vomiting) Qty: 20 RF: 0 clonazepam 1 mg tablet 1 mg PO DAILY RF: 0 atenolol 25 mg Tablet 25 mg PO DAILY RF: 0 Zyprexa 5 mg Tablet 5 mg PO DAILY RF: 0 Discharge Orders: Discharge Order (Routine); Ordered 10/21/19 Ordered By: Victor Hugo Duarte Discharge Diet: Usual diet Discharge Activity: Resume usual activity Patient Instructions: Sulfamethoxazole/Trimethoprim (By mouth), Atenolol (By mouth), Clonazepam (By mouth), Trazodone (By mouth), Duloxetine (By mouth) Activity Restrictions/Additional Instructions: follow-up at [facility] ([facility]) [facility] [address] [facility] [address] [place] [address] if you need outpatient mental health services go sometime within the walk-in hours 7:30a.m.-2:30 any day Saturday through Saturday and request initial intake if you need substance abuse treatment: [facility] [address] [place] [id number] Discharge Date/Time: 10/21/19 14:17 Discharge Attestations NPU Time Spent in Discharge Care*: less than 30 min Coding Level of Care Code Acute Architectural Superintendent for Chg Fwd Diagnoses Suicidal ideation R45.851 Methamphetamine abuse F15.10 Major psychotic depression, recurrent F33.3 Panic disorder F41.0
[2019-10-21 13:19] VITALS: BP 118/79; PULSE 95; RESP 18; TEMP 36.4; O2SAT 98
--- NOTE | 2019-10-21 13:35 | PC.NURSE ---
PRN ATIVAN 0.5 MG GIVEN PO PER PT C/O STATED ANXIETY
[2019-10-21 13:53] VITALS: BP 118/79; PULSE 95; RESP 18; TEMP 36.4; O2SAT 98
--- NOTE | 2019-11-04 08:10 | PM.NDC ---
Diagnoses at Discharge Discharge Diagnosis (1) Suicidal ideation: Status: Resolved (2) Methamphetamine abuse: Status: Acute (3) Major psychotic depression, recurrent: Status: Acute (4) Panic disorder: Status: Acute Reason for Visit Reason for Visit: Reason For Visit: SI Brief History: HPI NPU History of Present Illness 24-year-old male who walked in on his own desiring help because he does not want to live anymore. He told the triage nurse that he wanted to hang himself. The triage nurse will do an affidavit. He told the ED physician he did not have a plan but he has tried to hang himself in the past. 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 Has not been on any prescription medication for many months. Has had a previous admission for suicidal ideation and on chart review appears that his plan was to hang himself. The patient says today he had the same plan. He feels hopeless. 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 He may be exhibiting psychotic symptoms on the job. He says he hears people [facility] telling him he is crazy and believes that people are following him. For example, he thought that people were outside my office door, which I opened and no one was there. Review of Systems Narrative: Const: Denies: fever Eyes: Denies: change in vision ENMT: Denies: throat pain Card: Denies: chest pain Resp: Denies: shortness of breath GI: Denies: abdominal pain, nausea, vomiting or change in bowel habits Musc: Denies: muscle weakness Skin/Breast: Denies: rash Neuro: Denies: headache Psych: Reports: hopelessness and suicidal ideation Endo: Denies: excessive urination Misael/Lymph: Denies: easy bruising or easy bleeding All/Imm: Denies: hives Urologic symptoms are present. The patient's urine has blood red and smells intent . He denies pain or burning on urination. Microscopic examination confirms this with white cell casts, WBC, RBC and bacteria. Meds NPU Home Medications Medication Instructions Recorded Confirmed Type llqlaghal-YL-HO-acetaminophen 2 cap PO Q4H PRN 10/16/19 10/16/19 History [Cough and Cold] Allergies Allergy/AdvReac Type Severity Reaction Status Date / Time alvarez Allergy ALGY-Anaphy Verified 10/16/19 21:24 laxis alvarez flavor Allergy ALGY-Anaphy Verified 10/16/19 21:24 laxis [facility] NPU PFSH: Social History Smoking and tobacco status: current every day smoker Other Psychiatric History: Other Psychiatric History: The patient said he was hospitalized for suicidal ideation and depressions in 2016. His psychotic symptoms (auditory hallucinations and ideas of reference) arose some 5 months ago. He has intermittently been on meth. Because his psychotic symptoms are persistent he does not believe the meth, being available intermittently, has anything to do with his psychosis. I respectfully disagree with him Supplemental [facility] Information: The patient states that meth abuse is widespread in his family. Hospital Course Hospital Course To presented to the emergency room reporting lethality and thoughts to hang himself with a past history of suicide attempt by hanging. He was admitted to the neuropsychiatric unit and quickly acclimated to the individual, group and milieu therapies provided. He was started on Cymbalta and trazodone and had a positive response to those medications. During the hospitalization he had routine laboratory studies which were within normal limits except for a few outliers. Additionally he had a general medical evaluation which was also within normal limits and revealed no new acute processes. Discharge Summary At the time of discharge there was no lethality, mood and anxiety had stabilized, there was no psychosis reported. Plan to avoid all drugs of abuse and follow-up with outpatient services was endorsed. Patient was evaluated and found to be absent credible lethality and had obtained the maximum benefit from an inpatient hospitalization so they were discharged. Involuntary Hold Information 96 Hour Hold: 96 Hour Involuntary Admission: No Mental Status Exam MSE Comments: This is a well-nourished well-developed white male with adequate dress, grooming and eye contact. No abnormal movements except for mild psychomotor agitation. Cooperative with exam in no acute distress. Speech was normal rate and volume. Mood described as better, affect congruent. Thought process organized. Thought content: Patient denied any suicidal or homicidal ideations, there were no delusions reported or but he did appear to have some grandiosity, he denied any auditory or visual hallucinations. Attention and concentration appeared and memory appeared reliable but none were formally tested. He is alert and oriented x3. Insight and judgment are limited, but improving. Discharge Data Vitals: Last Vital Signs Temp 97.5 F L 10/21/19 13:53 Pulse 95 10/21/19 13:53 Resp 18 10/21/19 13:53 BP 118/79 10/21/19 13:53 Pulse Ox 98 10/21/19 13:53 Discharge Plan Discharge Patient Disposition: Home, Self-Care Condition: Stable Prescriptions: New trazodone 100 mg Tablet 100 mg PO BEDTIME Qty: 30 RF: 4 duloxetine 30 mg Capsule,Delayed Release(Dr/Ec) 30 mg PO DAILY Qty: 30 RF: 4 Discontinued Cough and Cold [id number] mg Capsule 2 cap PO Q4H PRN (Reason: COUGH/CONGESTION) RF: 0 Discharge Orders: Discharge Order (Routine); Ordered 10/21/19 Ordered By: Victor Hugo Duarte Discharge Diet: Usual diet Discharge Activity: Resume usual activity Patient Instructions: Sulfamethoxazole/Trimethoprim (By mouth), Atenolol (By mouth), Clonazepam (By mouth), Trazodone (By mouth), Duloxetine (By mouth) Activity Restrictions/Additional Instructions: follow-up at [facility] ([facility]) [facility] [address] [facility] [address] if you need outpatient mental health services go sometime within the walk-in hours 7:30a.m.-2:30 any day Saturday through Saturday and request initial intake if you need substance abuse treatment: [facility] [address] [facility] [place], [place] [address] Discharge Date/Time: 10/21/19 14:17 Discharge Attestations NPU Time Spent in Discharge Care*: less than 30 min Specific Discharge Activities: Specific discharge activities: educating patient, discussing with case resolution specialist/social workers/dc planners, documenting/other paperwork and evaluating patient/reviewing data Coding Level of Care Code Acute Non Acoustic Operator for [facility] Fwd Diagnoses Suicidal ideation R45.851 Methamphetamine abuse F15.10 Major psychotic depression, recurrent F33.3 Panic disorder F41.0
== END 2019-10-21 14:17 | disposition home or self-care (01) | DRG 885 ==
LOC: ER 22:26 → NP 22:49
PROVIDERS: Admitting Provider Psychiatry & Neurology Psychiatry; Emergency Provider Emergency Medicine; Visit Provider Psychiatry & Neurology Psychiatry
DX: F33.3 Major depressive disorder, recurrent, severe with psychotic symptoms (principal); R45.851 Suicidal ideations; F15.10 Other stimulant abuse, uncomplicated; F41.0 Panic disorder [episodic paroxysmal anxiety]; F17.210 Nicotine dependence, cigarettes, uncomplicated; F12.10 Cannabis abuse, uncomplicated; Z23 Encounter for immunization
CPT/HCPCS: 12345; 80053; 80306; 80307; 84443; 85025; 90471; 90686; 93005; 99284

== ENCOUNTER 2019-10-24 18:38 | Emergency (ER) | payer SELFPAY ==
[2019-10-24 18:42] VITALS: BMI 20.9
--- NOTE | 2019-10-24 18:46 | ED_ITS ---
Entered by Amanda Vela, acting as scribe for Jose Raul Chaudhary MD, [facility] [place] Oct 24, 2019 18:38 HPI - Psych General: Chief Complaint: Psychiatric Symptoms Stated Complaint: SI Time Seen by Provider: 10/24/19 18:46 Source: patient Mode of arrival: ambulatory Limitations: no limitations History of Present Illness: HPI Narrative: 24 yo Male presents to ED with complaint of suicidal ideation. Pt states that he has been feeling suicidal and wants to check into the stress unit. Pt states that he is also having nerve pain in his back. Pt states that he has been unable to get his medication filled for his back pain because he hasn't had the money. Pt states that he also doesn't have anywhere to go because his girlfriend kicked him out and said she didn't want him back. Pt states that he has a plan to hang himself. Pt states that he does use marijuana and methamphetamines on occasion. Pt states that he was just in the stress unit the other day. Pt states he has been suicidal just about his whole life. MD complaint: suicidal ideation Onset (ago): year(s) Duration: constant History of same: Yes Relieving factors: none Exacerbating factors: none Context: recent drug abuse and significant life stressor Associated psychiatric symptoms: suicidal ideation Associated symptoms: Reports suicidal ideation Treatments prior to arrival: none If self harm: admits thoughts of self harm and has plan Review of Systems General: Reports: 10 or more systems reviewed and unremarkable except in HPI and below Const: Denies: fever, chills or body aches Eyes: Denies: change in vision or blurry vision ENMT: Denies: throat pain, enlarged tonsils, painful swallowing, hoarseness, mouth pain or swelling of lips/tongue Card: Denies: chest pain, palpitations, irregular heart rhythm, edema or swelling of feet/ankles Resp: Denies: shortness of breath, productive cough or non-productive cough GI: Denies: abdominal pain, nausea or vomiting : Denies: flank pain, painful urination, urinary frequency, urinary urgency or urinary hesitancy Musc: Denies: neck pain, back pain or extremity swelling Skin/Breast: Denies: rash, itching or redness Neuro: Denies: headache, numbness in extremities or weakness in extremities Psych: Reports: suicidal ideation Endo: Denies: excessive urination, excessive thirst or tired all the time PFSH ED PFSH: Medical History Major psychotic depression, recurrent Methamphetamine abuse Social History Smoking and tobacco status: current every day smoker Physical Exam Const: COMMON NORMALS: no apparent distress, average body habitus, oriented x3, no limitations, healthy appearing, alert and well nourished HENMT: COMMON NORMALS: normocephalic, head/scalp atraumatic and moist oral mucous membranes HEAD & SCALP: normocephalic and atraumatic Eye: COMMON NORMALS: PERRL, EOMs intact bilaterally, conjunctivae normal and no scleral icterus CONJUNCTIVA: Yes conjunctivae normal PUPIL: Yes PERRL Neck/C-Spine: COMMON NORMALS: full ROM, supple, no meningeal signs, no JVD and no carotid bruits Chest: COMMONS NORMALS: inspection of chest normal and palpation of chest normal Resp: COMMON NORMALS: normal respiratory effort, no retractions, no use of accessory muscles, clear to auscultation bilaterally and percussion normal AUSCULTATION: clear to auscultation bilaterally PERCUSSION: percussion normal Cardio: COMMON NORMALS: no JVD, regular rate, regular rhythm, S1 normal heart sound, S2 normal heart sound, no gallops, no clicks, no murmurs, no rub and peripheral pulses 2+ throughout RATE: regular rate RHYTHM: regular rhythm HEART SOUNDS: S1 normal and S2 normal PERIPHERAL PULSES: pulses 2+ throughout GI: COMMON NORMALS: normal to inspection, nondistended, normoactive bowel sounds, soft to palpation, non-tender, no hepatosplenomegaly, no masses and no bruits PALPATION: Yes soft and Yes no hepatosplenomegaly : COMMON NORMALS: Yes no CVA tenderness BLADDER/KIDNEY EXAM: Yes no CVA tenderness Back/Pelvis: COMMON NORMALS: no CVA tenderness Extremity: COMMON NORMALS: normal to inspection, full ROM, normal capillary refill, no calf tenderness and no pedal edema Neuro: COMMON NORMALS: oriented x3 SENSORIUM/ORIENTATION: Yes alert MENINGEAL SIGNS: Yes no meningeal signs Skin: COMMON NORMALS: no rashes or lesions noted, no wounds, skin turgor normal, no jaundice, no petechiae and no mottling GENERAL SKIN EXAM: no rashes or lesions noted and turgor normal MDM - Psych MDM Narrative: Medical decision making narrative: 24-year-old patient who presents to the emergency department with suicidal ideation. He is medically cleared and transferred to [facility] for psychiatric evaluation. There are no psychiatric beds in this hospital at this time that is why he is being transferred. Lab Data: Labs: Lab Results 10/24/19 10/24/19 10/24/19 Range/Units 18:50 18:50 19:21 WBC 11.4 H (4.0-10.0) 10^3/ uL RBC 4.52 (4.1-5.3) 10^6/u L Hgb 12.5 (11.7-16.6) g/dL Hct 39.5 L (42.0-52.0) % MCV 87.4 (80-94) fL MCH 27.7 L (28.0-34.0) pg MCHC 31.6 (30.0-36.0) g/dL RDW 14.2 (12.1-15.1) % Plt Count 332 (130-400) 10^3/c mm MPV 10.1 (7.4-10.4) fL Neut % (Auto) 60.5 % Lymph % (Auto) 27.0 % [place]rell % (Auto) 7.3 % Eos % (Auto) 3.8 % Baso % (Auto) 0.7 % Neut # (Auto) 6.9 (1.8-7.7) 10^3/u L Lymph # (Auto) 3.1 (0.8-4.8) 10^3/u L [place] # (Auto) 0.8 (0.2-0.9) 10^3/u L Eos # (Auto) 0.4 (0.0-0.8) 10^3/u L Baso # (Auto) 0.1 (0.0-0.1) 10^3/u L Nucleated RBC % (a uto) 0 % Nucleated RBCs # 0.0 /100WBC Sodium (136-145) mmol/L Potassium (3.5-5.1) mmol/L Chloride (98-107) mmol/L Carbon Dioxide (22-29) mmol/L Anion Gap (5-19) BUN (6-20) mg/dL Creatinine (0.7-1.2) mg/dL GFR Calculation (90-130) mL/min Glucose (65-115) mg/dL Calculated Osmolal ity (285-295) mOsm/k g Calcium (8.5-10.5) mg/dL Total Bilirubin (0.15-1.2) mg/dL AST (0-40) U/L ALT (0-41) U/L Alkaline Phosphata se (40-130) IU/L Total Protein (6.6-8.7) g/dL Albumin (3.5-5.2) g/dL Globulin (1.3-4.6) g/dL Urine Color Yellow (Yellow) Urine Appearance Clear (CLEAR) Urine pH 6 (5-7) Ur Specific Gravit y 1.025 (1.005-1.030) Urine Protein Neg (Negative) Urine Glucose (UA) Norm (Normal) Urine Ketones Negative (Negative) Urine Blood Neg (Negative) Urine Nitrate Negative (Negative) Urine Bilirubin Neg (NEGATIVE) Urine Urobilinogen 1 H (Negative) mg/dL Ur Leukocyte Kathie ase Negative (Negative) Salicylates (3-10) mg/dL Urine Opiates Scre en Negative (Negative) ng/mL Acetaminophen (10-30) ug/mL Ur Barbiturates Sc reen Negative (Negative) ng/mL Ur Phencyclidine S crn Negative (Negative) ng/mL Ur Amphetamines Sc reen Positive H (Negative) ng/mL U Benzodiazepines Scrn Positive H (Negative) ng/mL Urine Cocaine Scre en Negative (Negative) ng/mL U Marijuana (THC) Screen Positive H (Negative) ng/mL Ethyl Alcohol (0-10) mg/dL 03/21/20 Range/Units 19:21 WBC (4.0-10.0) 10^3/ uL RBC (4.1-5.3) 10^6/u L Hgb (11.7-16.6) g/dL Hct (42.0-52.0) % MCV (80-94) fL MCH (28.0-34.0) pg MCHC (30.0-36.0) g/dL RDW (12.1-15.1) % Plt Count (130-400) 10^3/c mm MPV (7.4-10.4) fL Neut % (Auto) % Lymph % (Auto) % [place] % (Auto) % Eos % (Auto) % Baso % (Auto) % Neut # (Auto) (1.8-7.7) 10^3/u L Lymph # (Auto) (0.8-4.8) 10^3/u L [place] # (Auto) (0.2-0.9) 10^3/u L Eos # (Auto) (0.0-0.8) 10^3/u L Baso # (Auto) (0.0-0.1) 10^3/u L Nucleated RBC % (a uto) % Nucleated RBCs # /100WBC Sodium 140 (136-145) mmol/L Potassium 4.3 (3.5-5.1) mmol/L Chloride 103 (98-107) mmol/L Carbon Dioxide 27 (22-29) mmol/L Anion Gap 14.3 (5-19) BUN 16 (6-20) mg/dL Creatinine 1.1 (0.7-1.2) mg/dL GFR Calculation 81.6 L (90-130) mL/min Glucose 106 (65-115) mg/dL Calculated Osmolal ity 287 (285-295) mOsm/k g Calcium 8.9 (8.5-10.5) mg/dL Total Bilirubin 0.2 (0.15-1.2) mg/dL AST 63 H (0-40) U/L ALT 72 H (0-41) U/L Alkaline Phosphata se 92 (40-130) IU/L Total Protein 7.0 (6.6-8.7) g/dL Albumin 3.8 (3.5-5.2) g/dL Globulin 3.2 (1.3-4.6) g/dL Urine Color (Yellow) Urine Appearance (CLEAR) Urine pH (5-7) Ur Specific Gravit y (1.005-1.030) Urine Protein (Negative) Urine Glucose (UA) (Normal) Urine Ketones (Negative) Urine Blood (Negative) Urine Nitrate (Negative) Urine Bilirubin (NEGATIVE) Urine Urobilinogen (Negative) mg/dL Ur Leukocyte Kathie ase (Negative) Salicylates 0.4 L (3-10) mg/dL Urine Opiates Scre en (Negative) ng/mL Acetaminophen < 5.0 L (10-30) ug/mL Ur Barbiturates Sc reen (Negative) ng/mL Ur Phencyclidine S crn (Negative) ng/mL Ur Amphetamines Sc reen (Negative) ng/mL U Benzodiazepines Scrn (Negative) ng/mL Urine Cocaine Scre en (Negative) ng/mL U Marijuana (THC) Screen (Negative) ng/mL Ethyl Alcohol 11 H (0-10) mg/dL Discharge Plan Discharge Patient Disposition: Xfer Psychiatric Hosp Clinical Impression: Suicidal ideation, Polysubstance abuse Condition: Stable Discharge Orders: Transfer Out of Facility (Order); Ordered 10/24/19 Ordered By: Jose Raul Chaudhary Coding Level of Care Code ED News Assistant for Chg Fwd Exam Comprehensive The documentation recorded by the Dane weinstein Carmen, accurately reflects the service I personally performed and the decisions made by Jet mccollum Adegoke I, MD, [facility] [place] Oct 24, 2019 18:38
[2019-10-24 18:47] VITALS: BP 139/89; PULSE 100; RESP 16; TEMP 36.6; O2SAT 100
[2019-10-24 19:27] LABS: Basophils # 0.1 10^3/uL (0.0-0.1); Basophils % 0.7 %; Eosinophils # 0.4 10^3/uL (0.0-0.8); Eosinophils % 3.8 %; Hematocrit 39.5 % (42.0-52.0); Hemoglobin 12.5 g/dL (11.7-16.6); Lymphocytes # 3.1 10^3/uL (0.8-4.8); Mean Corpuscular HGB Conc 31.6 g/dL (30.0-36.0); Mean Corpuscular Hemoglobin 27.7 pg (28.0-34.0); Mean Corpuscular Volume 87.4 fL (80-94); Mean Platelet Volume 10.1 fL (7.4-10.4); Monocytes # 0.8 10^3/uL (0.2-0.9); Monocytes % 7.3 %; Neutrophils # 6.9 10^3/uL (1.8-7.7); Neutrophils % 60.5 %; Nucleated Red Blood Cells % 0 %; Platelet Count 332 10^3/cmm (130-400); Red Blood Count 4.52 10^6/uL (4.1-5.3); Red Cell Distribution Width 14.2 % (12.1-15.1); White Blood Count 11.4 10^3/uL (4.0-10.0)
[2019-10-24 19:33] LABS: Add Urine Microscopic? NO
[2019-10-24 19:35] LABS: Bilirubin Urine Neg (NEGATIVE); Blood Urine Neg (Negative); Glucose Urine UA Norm (Normal); Ketones Urine Negative (Negative); Leukocyte Esterase Urine Negative (Negative); Nitrate Urine Negative (Negative); Protein Urine Neg (Negative); Specific Gravity, Urine 1.025 (1.005-1.030); Urine Appearance Clear (CLEAR); Urine Color Yellow (Yellow); Urobilinogen Urine 1 mg/dL (Negative); pH Urine 6 (5-7)
[2019-10-24 19:43] LABS: Alanine Aminotransferase 72 U/L (0-41); Albumin Level 3.8 g/dL (3.5-5.2); Alcohol Level 11 mg/dL (0-10); Alkaline Phosphatase 92 IU/L (40-130); Anion Gap 14.3 (5-19); Aspartate Amino Transferase 63 U/L (0-40); Blood Urea Nitrogen 16 mg/dL (6-20); Calcium 8.9 mg/dL (8.5-10.5); Carbon Dioxide 27 mmol/L (22-29); Chloride 103 mmol/L (98-107); Globulin 3.2 g/dL (1.3-4.6); Glomerular Filtration Rate 81.6 mL/min (90-130); Glucose 106 mg/dL (65-115); Osmolality Calculated 287 mOsm/kg (285-295); Potassium 4.3 mmol/L (3.5-5.1); Salicylate 0.4 mg/dL (3-10); Sodium 140 mmol/L (136-145); Total Bilirubin 0.2 mg/dL (0.15-1.2)
[2019-10-24 19:44] LABS: Amphetamines Screen Urine Positive (Negative); Barbiturates Screen Urine Negative (Negative); Benzodiazepines Screen Urine Positive (Negative); Cocaine Screen Urine Negative (Negative); Opiate Screen Urine Negative (Negative); PCP Screen Urine Negative (Negative); THC Screen Urine Positive (Negative)
[2019-10-24 19:44] LABS: Acetaminophen < 5.0 ug/mL (10-30)
[2019-10-24] MEDS: nicotine 21 mg Patch 1 PATCH TRANSDERMA (19:52)
[2019-10-24] MEDS: LORazepam 1 mg Tablet PO (19:52)
--- NOTE | 2019-10-24 22:52 | PC.NURSE ---
Report given to EMS
[2019-10-24 22:56] VITALS: PULSE 86; RESP 16; O2SAT 99
--- NOTE | 2019-10-25 15:26 | PM.NDC ---
Reason for Visit Reason for Visit: Reason For Visit: SI Hospital Course Discharge Summary To Malhotra HPI: 24-year-old male who walked in on his own desiring help because he does not want to live anymore. He told the triage nurse that he wanted to hang himself. The triage nurse will do an affidavit. He told the ED physician he did not have a plan but he has tried to hang himself in the past. 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 Has not been on any prescription medication for many months. Has had a previous admission for suicidal ideation and on chart review appears that his plan was to hang himself. The patient says today he had the same plan. He feels hopeless. 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 He may be exhibiting psychotic symptoms on the job. He says he hears people in [employer] telling him he is crazy and believes that people are following him. For example, he thought that people were outside my office door, which I opened and no one was there. Hospital Course: The patient was admitted to the psychiatric unit provided supportive environment with the availability of nursing staff. He received an initial psychiatric evaluation by the psychiatrist on duty. He was engaged in the individual and group therapies as part of the results psychiatric protocol. His psychosis resolved without significant medication intervention indicating that psychosis was likely a complication of his amphetamine abuse. He was also noted that he had a urinary tract infection which may have also been having mental status complications. (1) Suicidal ideation: patient is no longer exhibiting signs of psychosis or suicidal ideation He has been started on Cymbalta which has been helpful for depression in the past. It does not appear that his participation in outpatient substance abuse program will be as influential as him solving his problem of homelessness and unemployment. Status: Acute Code(s): R45.851 - Suicidal ideations (2) Methamphetamine abuse: patient is aware of outpatient rehabilitation programs. Methamphetamine abuse is being driven primarily by his homelessness and his lack of engagement and goal-directed self-esteem supporting activities. Status: Acute Code(s): F15.10 - Other stimulant abuse, uncomplicated (3) Major psychotic depression, recurrent: he does not meet criteria for clinical depression but has benefited from Cymbalta in the past. Will restart Cymbalta 30 mg daily and supplement that with trazodone 100 mg at bedtime. Status: Acute Code(s): F33.3 - Major depressive disorder, recurrent, severe with psychotic symptoms (4) Panic disorder: Trial of clonazepam 0.5 mg to assess tolerability. Will repeat ECG to assess in non-symptomatic state and decide whether acute hospitalist assessment is necessary. Status: Acute Code(s): F41.0 - Panic disorder [episodic paroxysmal anxiety] Additional A&P Information Assessment and plan (1) Suicidal ideation: resolved (2) Methamphetamine abuse: Psychosocial intervention will also be necessary. (3) Major psychotic depression, recurrent: patient is no longer exhibiting signs of psychosis. Though he has a methamphetamine abuse disorder, his main problem is primarily psychosocial and residual symptoms of depression. He has been started on Cymbalta which has been helpful for depression in the past. It does not appear that his participation in outpatient substance abuse program will be as influential as him solving his problem of homelessness and unemployment Discharge mental status: This is a 24-year-old male who presents at his stated age. He is clean, and neat and well-groomed. Mood is bright and affect is euthymic. Thought processes are integrated and free of racing, blocking or looseness of association. He is clear minded in contradistinction to his foggy mental state yesterday. Speech is of normal rate and volume, without aprosody, dysarthria or pressure. Cognitive functions have reconstituted. There is no confusion or disorientation. He is free of psychotic symptoms such as but not limited to hallucinations, delusions or ideas of reference. He denies suicidal or homicidal ideation, plan or intent. Insight and judgment are returning. Involuntary Hold Information 96 Hour Hold: 96 Hour Involuntary Admission: No Discharge Data Vitals: Last Vital Signs Temp 97.8 F 10/24/19 18:47 Pulse 86 10/24/19 22:56 Resp 16 10/24/19 22:56 BP 139/89 10/24/19 18:47 Pulse Ox 99 10/24/19 22:56 Discharge Plan Discharge Patient Disposition: Xfer Psychiatric Hosp Clinical Impression: Suicidal ideation, Polysubstance abuse Condition: Stable Discharge Orders: Transfer Out of Facility (Order); Ordered 10/24/19 Ordered By: Jose Raul Chaudhary Discharge Date/Time: 10/24/19 22:57 Discharge Attestations NPU Time Spent in Discharge Care*: greater than 30 min Coding Level of Care Code Acute Paper Inspector for Ronni Bazan
--- NOTE | 2019-10-29 15:16 | PM.NDC ---
Reason for Visit Reason for Visit: Reason For Visit: SI Hospital Course Discharge Summary Document established for wrong admission and EMR will not allow me to erase it. ERROR!! Involuntary Hold Information 96 Hour Hold: 96 Hour Involuntary Admission: No Discharge Data Vitals: Last Vital Signs Temp 97.8 F 10/24/19 18:47 Pulse 86 10/24/19 22:56 Resp 16 10/24/19 22:56 BP 139/89 10/24/19 18:47 Pulse Ox 99 10/24/19 22:56 Discharge Plan Discharge Patient Disposition: er Psychiatric Hosp Clinical Impression: Suicidal ideation, Polysubstance abuse Condition: Stable Discharge Orders: Transfer Out of Facility (Order); Ordered 10/24/19 Ordered By: Jose Raul Chaudhary Discharge Date/Time: 10/24/19 22:57 Discharge Attestations NPU Time Spent in Discharge Care*: less than 30 min Coding Level of Care Code Acute [employer] for Ronni Bazan
--- NOTE | 2019-11-17 15:20 | P.DS_ITS ---
Reason for Visit Reason for Visit: Reason For Visit: SI Hospital Course Discharge Summary To Malhotra HPI: 24-year-old male who walked in on his own desiring help because he does not want to live anymore. He told the triage nurse that he wanted to hang himself. The triage nurse will do an affidavit. He told the ED physician he did not have a plan but he has tried to hang himself in the past. 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 Has not been on any prescription medication for many months. Has had a previous admission for suicidal ideation and on chart review appears that his plan was to hang himself. The patient says today he had the same plan. He feels hopeless. 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 He may be exhibiting psychotic symptom s on the job. He says he hears people in [employer] telling him he is crazy and believes that people are following him. For example, he thought that people were outside my office door, which I opened and no one was there. Hospital Course: The patient was admitted to the psychiatric unit provided supportive environment with the availability of nursing staff. He received an initial psychiatric eval uation by the psychiatrist on duty. He was engaged in the individual and group therapies as part of the results psychiatric protocol. His psychosis resolved without significant medication intervention indicating that psychosis was likely a complication of his amphetamine abuse. He was also noted that he had a urinary tract infection which may have also been having mental status complications. (1) Suicidal ideation: patient is no longer exhibiting signs of psychosis or suicidal ideation He has been started on Cymbalta which has been helpful for depression in the past. It does not appear that his participation in outpatient substance abuse program will be as influential as him solving his problem of homelessness and unemployment. Status: Acute Code(s): R45.851 - Suicidal ideations (2) Methamphetamine abuse: patient is aware of outpatient rehabilitation programs. Methamphetamine abuse is being driven primarily by his homelessness and his lack of engagement a nd goal-directed self-esteem supporting activities. Status: Acute Code(s): F15.10 - Other stimulant abuse, uncomplicated (3) Major psychotic depression, recurrent: he does not meet criteria for clinical depression but has benefited from Cymbalta in the past. Will restart Cymbalta 30 mg daily and supplement that with trazodone 100 mg at bedtime. Status: Acute Code(s): F33.3 - Major depressive disorder, recurrent, severe with psychotic symptoms (4) Panic disorder: Trial of clonazepam 0.5 mg to assess tolerability. Will repeat ECG to assess in non-symptomatic state and decide whether acute hospitalist assessment is necessary. Status: Acute Code(s): F41.0 - Panic disorder [episodic paroxysmal anxiety] Additional A&P Information Assessment and plan (1) Suicidal ideation: resolved (2) Methamphetamine abuse: Psychosocial intervention will also be necessary. (3) Major psychotic depression, recurrent: patient is no longer exhibiting signs of psychosis. Though he has a methamphetamine abuse disorder, his main problem is primarily psychosocial and residual symptoms of depression. He has been started on Cymbalta which has been helpful for depression in the past. It does not appear that his participation in outpatient substance abuse program will be as influential as him solving his problem of homelessness and unemployment Discharge mental status: This is a 24-year-old male who presents at his stated age. He is clean, and neat and well-groomed. Mood is bright and affect is euthymic. Thought processes are integrated and free of racing, blocking or looseness of association. He is clear minded in contradistinction to his foggy mental state yesterday. Speech is of normal rate and volume, without aprosody, dysarthria or pressure. Cognitive functions have reconstituted. There is no confusion or disorientation. He is free of psychotic symptoms such as but not limited to hallucinations, delusions or ideas of reference. He denies suicidal or homicidal ideation, plan or intent. Insight and judgment are returning. Involuntary Hold Information 2 96 Hour Hold: 96 Hour Involuntary Admission: No Discharge Data Vitals: Last Vital Signs Temp 97.8 F 10/24/19 18:47 Pulse 86 10/24/19 22:56 Resp 16 10/24/19 22:56 BP 139/89 10/24/19 18:47 Pulse Ox 99 10/24/19 22:56 Discharge Plan Discharge Patient Disposition: Xfer Psychiatric Hosp Clinical Impression: Suicidal ideation, Polysubstance abuse Condition: Stable Discharge Orders: Transfer Out of Facility (Order); Ordered 03/21/20 Ordered By: Jose Raul Chaudhary Discharge Date/Time: 10/24/19 22:57 Discharge Attestations NPU Time Spent in Discharge Care*: less than 30 min Coding Level of Care Code Acute Supervisor Pre Wave for Ronni Bazan
== END 2019-10-24 22:57 ==
PROVIDERS: Emergency Provider Family Medicine
DX: R45.851 Suicidal ideations (principal); F19.10 Other psychoactive substance abuse, uncomplicated; F17.200 Nicotine dependence, unspecified, uncomplicated
CPT/HCPCS: 12345; 80053; 80306; 80307; 81003; 85025; 99284; 99285

== ENCOUNTER 2019-10-31 12:55 | Inpatient (IN) | payer SELFPAY ==
[2019-10-31 13:02] VITALS: BP 156/112; PULSE 112; RESP 20; TEMP 36.9; O2SAT 99; BMI 18.3
--- NOTE | 2019-10-31 13:17 | W.ED.PSYCH ---
HPI - Psych General: Chief Complaint: Psychiatric Symptoms Stated Complaint: SI/HI Time Seen by Provider: 10/31/19 13:00 Source: patient Mode of arrival: ambulatory Limitations: no limitations History of Present Illness: HPI Narrative: 24-year-old male with history of methamphetamine abuse and psychiatric issues. Patient states that he has been suicidal along with homicidal over the last 2 days. He states he has a plan to kill himself by hanging himself. complaint: suicidal ideation Onset (ago): hour(s) Duration: constant History of same: Yes Relieving factors: none Exacerbating factors: none Context: recent drug abuse Associated psychiatric symptoms: depression, suicidal ideation and auditory hallucinations Associated symptoms: Reports depression If self harm: has plan Review of Systems Const: Denies: fever, chills, body aches or change in appetite Eyes: Denies: blurry vision or eye discomfort ENMT: Denies: throat pain or dental pain Card: Denies: chest pain Resp: Denies: shortness of breath GI: Denies: abdominal pain, nausea, vomiting or diarrhea : Denies: painful urination Musc: Denies: neck pain or back pain Skin/Breast: Denies: rash Neuro: Denies: headache Psych: Reports: depression, hopelessness and paranoia Misael/Lymph: Denies: easy bruising All/Imm: Denies: hives [facility] ED PFSH: Social History Smoking and tobacco status: current every day smoker Physical Exam Const: COMMON NORMALS: no apparent distress, oriented x3 and healthy appearing GENERAL APPEARANCE: disheveled HENMT: COMMON NORMALS: normocephalic and head/scalp atraumatic HEAD & SCALP: normocephalic and atraumatic Eye: COMMON NORMALS: PERRL and EOMs intact bilaterally PUPIL: Yes PERRL Neck/C-Spine: COMMON NORMALS: full ROM and supple Chest: COMMONS NORMALS: inspection of chest normal and palpation of chest normal Resp: COMMON NORMALS: normal respiratory effort, no retractions, no use of accessory muscles and clear to auscultation bilaterally AUSCULTATION: clear to auscultation bilaterally Cardio: COMMON NORMALS: regular rate, regular rhythm and no murmurs RATE: regular rate RHYTHM: regular rhythm GI: COMMON NORMALS: normal to inspection, nondistended, normoactive bowel sounds, soft to palpation, non-tender and no masses PALPATION: Yes soft Extremity: COMMON NORMALS: normal to inspection and full ROM Neuro: COMMON NORMALS: oriented x3, moves all extremities and no focal motor deficits Psych: COMMON NORMALS: cooperative MOOD & AFFECT: Yes anxious THOUGHT CONTENT: Yes suicidality Skin: COMMON NORMALS: no rashes or lesions noted and no wounds GENERAL SKIN EXAM: no rashes or lesions noted MDM - Psych MDM Narrative: Medical decision making narrative: Patient presents here with suicidal ideation. Patient is well-appearing here and is voluntarily wanting to be placed. I spoke to psychiatrist and will admit to the psychiatric unit at this time. Lab Data: Labs: Lab Results 10/31/19 10/31/19 Range/Units 13:41 13:41 WBC 12.5 H (4.0-10.0) 10^3/ uL RBC 5.13 (4.1-5.3) 10^6/u L Hgb 13.9 (11.7-16.6) g/dL Hct 45.2 (42.0-52.0) % MCV 88.1 (80-94) fL MCH 27.1 L (28.0-34.0) pg MCHC 30.8 (30.0-36.0) g/dL RDW 14.3 (12.1-15.1) % Plt Count 392 (130-400) 10^3/c mm MPV 10.2 (7.4-10.4) fL Neut % (Auto) 66.9 % Lymph % (Auto) 19.1 % [place] % (Auto) 8.2 % Eos % (Auto) 4.1 % Baso % (Auto) 0.8 % Neut # (Auto) 8.4 H (1.8-7.7) 10^3/u L Lymph # (Auto) 2.4 (0.8-4.8) 10^3/u L [place] # (Auto) 1.0 H (0.2-0.9) 10^3/u L Eos # (Auto) 0.5 (0.0-0.8) 10^3/u L Baso # (Auto) 0.1 (0.0-0.1) 10^3/u L Nucleated RBC % (a uto) 0 % Nucleated RBCs # 0.0 /100WBC Sodium 141 (136-145) mmol/L Potassium 4.1 (3.5-5.1) mmol/L Chloride 102 (98-107) mmol/L Carbon Dioxide 28 (22-29) mmol/L Anion Gap 15.1 (5-19) BUN 20 (6-20) mg/dL Creatinine 1.2 (0.7-1.2) mg/dL GFR Calculation 73.8 L (90-130) mL/min Glucose 85 (65-115) mg/dL Calculated Osmolal ity 288 (285-295) mOsm/k g Calcium 9.5 (8.5-10.5) mg/dL Total Bilirubin 0.5 (0.15-1.2) mg/dL AST 59 H (0-40) U/L ALT 90 H (0-41) U/L Alkaline Phosphata se 103 (40-130) IU/L Total Protein 7.7 (6.6-8.7) g/dL Albumin 4.3 (3.5-5.2) g/dL Globulin 3.4 (1.3-4.6) g/dL Salicylates < 0.3 L (3-10) mg/dL Acetaminophen < 5.0 L (10-30) ug/mL Ethyl Alcohol < 10 (0-10) mg/dL Discharge Plan Discharge Patient Disposition: Admitted As Inpatient Clinical Impression: Suicidal ideation Condition: Stable Coding Level of Care Code ED Senior Gis Analyst for Ronni Fwd Exam Comprehensive
[2019-10-31] MEDS: LORazepam 2 mg Tablet PO (13:27)
[2019-10-31] MEDS: haloperidol 5 mg Tablet PO (13:27)
[2019-10-31 13:50] LABS: Basophils # 0.1 10^3/uL (0.0-0.1); Basophils % 0.8 %; Eosinophils # 0.5 10^3/uL (0.0-0.8); Eosinophils % 4.1 %; Hematocrit 45.2 % (42.0-52.0); Hemoglobin 13.9 g/dL (11.7-16.6); Lymphocytes # 2.4 10^3/uL (0.8-4.8); Lymphocytes % 19.1 %; Mean Corpuscular HGB Conc 30.8 g/dL (30.0-36.0); Mean Corpuscular Hemoglobin 27.1 pg (28.0-34.0); Mean Corpuscular Volume 88.1 fL (80-94); Mean Platelet Volume 10.2 fL (7.4-10.4); Monocytes % 8.2 %; Neutrophils # 8.4 10^3/uL (1.8-7.7); Neutrophils % 66.9 %; Nucleated Red Blood Cells % 0 %; Platelet Count 392 10^3/cmm (130-400); Red Blood Count 5.13 10^6/uL (4.1-5.3); Red Cell Distribution Width 14.3 % (12.1-15.1); White Blood Count 12.5 10^3/uL (4.0-10.0)
[2019-10-31 14:12] LABS: Alanine Aminotransferase 90 U/L (0-41); Albumin Level 4.3 g/dL (3.5-5.2); Alkaline Phosphatase 103 IU/L (40-130); Anion Gap 15.1 (5-19); Aspartate Amino Transferase 59 U/L (0-40); Blood Urea Nitrogen 20 mg/dL (6-20); Calcium 9.5 mg/dL (8.5-10.5); Carbon Dioxide 28 mmol/L (22-29); Chloride 102 mmol/L (98-107); Globulin 3.4 g/dL (1.3-4.6); Glomerular Filtration Rate 73.8 mL/min (90-130); Glucose 85 mg/dL (65-115); Osmolality Calculated 288 mOsm/kg (285-295); Potassium 4.1 mmol/L (3.5-5.1); Sodium 141 mmol/L (136-145); Total Bilirubin 0.5 mg/dL (0.15-1.2); Total Protein 7.7 g/dL (6.6-8.7)
[2019-10-31 14:17] LABS: Acetaminophen < 5.0 ug/mL (10-30); Alcohol Level < 10 mg/dL (0-10); Salicylate < 0.3 mg/dL (3-10)
--- NOTE | 2019-10-31 15:25 | PC.NURSE ---
patient refused to try to give ua sample, told patient i would cath him and he said go ahead
[2019-10-31 15:44] VITALS: BP 116/99; PULSE 97; RESP 16; O2SAT 97
[2019-10-31 16:05] VITALS: BP 110/72; PULSE 73; RESP 18
[2019-10-31 19:54] LABS: Amphetamines Screen Urine Positive (Negative); Barbiturates Screen Urine Negative (Negative); Benzodiazepines Screen Urine Positive (Negative); Cocaine Screen Urine Negative (Negative); Opiate Screen Urine Negative (Negative); PCP Screen Urine Negative (Negative); THC Screen Urine Positive (Negative)
[2019-10-31 22:00] VITALS: BP 125/82; PULSE 84; RESP 18; TEMP 36.6; O2SAT 98
[2019-11-01 06:00] VITALS: BP 121/82; PULSE 74; RESP 20; TEMP 36.6
--- NOTE | 2019-11-01 06:57 | P.HP_ITS ---
Providers/Chief Complaint Admitting Physician: Giorgi Dalton MD Chief Complaint: mhe HPI NPU History of Present Illness To Malhotra is a 24 year old male To presents today having just been discharged from here on 10-21-19. It is our understanding that he also went to another facility in the meantime possibly. He has a history of addiction and struggles with a lot of psychosocial challenges. He is not really forthright in his storytelling. He does present positive in UDS for amphetamines, benzodia zepines and marijuana. He got somewhat frustrated because one of the things he was upset about was the fact that his Klonopin was reportedly taken away in the previous hospitalization, but as we talked about his situation, what was identified was that he was speaking about being out of the Klonopin, but Dr. Duarte gave him a 30-day supply and reportedly he has refills, but he was only given 20 pills, so that he was not supposed to be taking it every day. He presents to us ultimately ten days removed from that script and so if he is out of the medication, he either diverted it or took two a day instead, which was not the plan at all given his addiction history. He was very upset with the cla rity of my math and ended up punching something after we had that conversation because he was frustrated at my approach. We discussed my concerns about giving him benzodiazepine, but he ultimately reported that is what worked and that the Atenolol that was given to him was not helpful. I told him that I would deliberate over the decision but that likely I would look to something like Propranolol. We discussed the risks, benefits and alternatives of that, and he understood, but was very insistent that the Klonopin was taken away from him at the outside hospital, but his behavior surrounding this is very suggestive that it is not a good idea. We reviewed his recent hospitalization records, spe cifically the psychosocial information regarding past psychiatric hospitalizations which he has had a few as well as his addiction issues, and he denies there being significant changes. It is unclear that he actually has a place to go which might be impacting the situation as well. He also had hospi talizations in his youth. He endorses, which can be seen, elsewhere that there are family members with addiction issues and mental health issues, but he has been living with his grandmother but straining that relationship and that he continues to struggle with addiction and follow-up as an outpatient. Please see below for past evaluations and history of multiple medication trials. Per 10/2019 [facility] eval: HPI NPU History of Present Illness 24-year-old male who walked in on his own desiring help because he does not want to live anymore. He told the triage nurse that he wanted to hang himself. The triage nurse will do an affidavit. He told the ED physician he did not have a plan but he has tried to hang himself in the past. 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 Has not been on any prescription medication for many months. Has had a previous admission for suicidal ideation and on chart review appears that his plan was to hang himself. The patient says today he had the same plan. He feels hopeless. 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 He may be exhibiting psychotic symptoms on the job. He says he [place] people [place] [facility] telling him he is [place] and believes that people are following him. For example, he thought that people were outside my office door, which I opened and no one was there. Review of Systems Narrative: Const: Denies: fever Eyes: Denies: change in vision ENMT: Denies: throat pain Card: Denies: chest pain Resp: Denies: shortness of breath GI: Denies: abdominal pain, nausea, vomiting or change in bowel habits Musc: Denies: muscle weakness Skin/Breast: Denies: rash Neuro: Denies: headache Psych: Reports: hopelessness and suicidal ideation Endo: Denies: excessive urination Misael/Lymph: Denies: easy bruising or easy bleeding All/Imm: Denies: hives Urologic symptoms are present. The patient's urine has blood red and smells in tent . He denies pain or burning on urination. Microscopic examination confirms this with white cell casts, WBC, RBC and bacteria. Meds NPU Home Medications Medication Instructions Recorded Confirmed Type [id number]-acetaminophen 2 cap PO Q4H PRN 10/16/19 10/16/19 History [Cough and Cold] Allergies Allergy/AdvReac Type Severity Reaction Status Date / Time yeung Allergy ALGY-Anaphy Verified 10/16/19 21:24 laxis yeung flavor Allergy ALGY-Anaphy Verified 10/16/19 21:24 laxis PFS NPU PFSH: Social History Smoking and tobacco status: current every day smoker Other Psychiatric History: Other Psychiatric History: The patient said he w as hospitalized for suicidal ideation and depressions in 2016. His psychotic symptoms (auditory hallucinations and ideas of reference) arose some 5 months ago. He has intermittently been on meth. Because his psychotic symptoms are persistent he does not believe the meth, being available intermittently, has anything to do with his psychosis. I respectfully disagree with him Supplemental [facility] Information: The patient states that meth abuse is widespread in his family. Per 2017 [facility] eval: History of Present Illness Date of Service: Sep 13, 2016 Chief Complaint: Suicidal ideation HPI: Mr. Malhotra is a 21-year-old male who is known to our behavioral health system who was admitted on a 96 hour hold in the context of expression of severe suicidal and homicidal ideation yesterday. Affidavit from his providers over at [facility] were submitted to support the 96 hour hold. Patient reports that yesterday he experiences severe suicidal ideation and some homicidal ideation the context of becoming very anxious and angry after he told his treatment providers and is for patient officer that he used hydrocodone from a friend to manage to his pain. He states that this was seen as a violation of his parole. Is because of his statements yesterday and his behavior that he was referred for admission in place on a 96 hour hold. He reports that approximately 1-2 weeks ago he wa taken off Wellbutrin and placed on the Seroquel because of worsening irritability and suicidal and homicidal ideation. He also reports experiencing variable mood, associated with poor focus, difficulty sitting still, anhedonia, social isolation. He admits that he can get really stressed out , describing episodes where he will feel emotionally confused have mixed thoughts, experience suicidal thinking sometimes angry sometimes homicidal thinking and during these times he can be calm behaviorally intense. He denies any violence towards anyone. He states that generally speaking he is alert anxious person, citing nervousness particularly at night that impacts his sleep he can wake him from sleep feeling anxious. He does struggle with chronic back pain and he states that when he becomes anxious vertically at night that he experiences some spasms in his back. For this reason his PCP has prescribed Flexeril which has been helpful. Patient has been at [facility] starting with the residential program in June 2016, and his transition to outpatient. He does report a history of methamphetamine use in the past and but he has been clean for 2 years. He entered into treatment at [facility] for alcohol and marijuana use, and states that he has been clean and sober since that time. He reports that the use of the hydrocodone was the first substance that he had taken, and that he had taken this in the context of having persisting to his pain. Patient reports that he is been struggling with tooth pain now for the past 6 months but within the past week that his garden specifically worse. He complains of throbbing tooth pain upper and lower on both sides mostly in the back suggesting the possibility of either molar infection, or pain associated with infected wisdom teeth. He states that he is aware that his left upper molar in the back is checked and this has been giving him difficulty for some time. He denies any symptoms consistent with lianne or hypomania. He does report a previous history of PTSD. Allergies: Coded Allergies: YEUNG FLAVOR (Unverified Allergy, Unknown, 09/03/16) Active Meds: Current Hospital Medications: Medications (Trade) Dose Ordered Sig/Dianne Route PRN Reason Start Time Stop Time Status Last Admin Dose Admin Lorazepam (Ativan Tab) 0.5 mg Q4H PRN PO FOR MILD ANXIETY 09/12/16 20:15 Lorazepam (Ativan Tab) 1 mg Q4H PRN PO FOR MODERATE ANXIETY 09/12/16 20:15 09/13/16 09:13 Lorazepam (Ativan Tab) 2 mg Q4H PRN PO FOR SEVERE ANXIETY 09/12/16 20:15 09/12/16 21:56 Lorazepam (Ativan Inj) 2 mg Q4H PRN IM For Severe Aggression 09/12/16 20:15 Haloperidol Lactate (Haldol Inj) 5 mg Q4H PRN IM Severe Aggression 09/12/16 20:15 Diphenhydramine HCl (Benadryl Inj) 50 mg ONCE PRN IV Severe Extrapyramidal Symptoms 09/12/16 20:15 Benztropine Mesylate (Cogentin Tab) 1 mg BID PRN PO Mild Extrapyramidal symptoms 09/12/16 20:15 Benztropine Mesylate (Cogentin Inj) 1 mg ONCE PRN IM Severe Extrapyramidal Symptom 09/12/16 20:15 Acetaminophen (Tylenol Tab) 650 mg Q4H PRN PO FOR MILD PAIN 09/12/16 20:15 09/12/16 22:23 Trazodone HCl (Trazodone) 50 mg BEDTIME PRN PO FOR SLEEP 09/12/16 20:15 Nicotine (Nicoderm Patch) 21 mg DAILY PRN TD FOR WITHDRAWAL 09/12/16 20:15 Nicotine Polacrilex (Nicotine Gum) 2 mg Q2H PRN PO Withdrawal 09/12/16 20:15 Haloperidol (Haldol Tab) 5 mg Q4H PRN PO For agitation 09/12/16 20:15 Lorazepam (Ativan Tab) 2 mg Q4H PRN PO FOR AGITATION 09/12/16 20:15 Ranitidine HCl (Zantac Tab) 150 mg TIDAC PO 09/13/16 11:00 Amoxicillin/ Clavulanate Potassium (Augmentin 875-125mg Tab) 1 ea BID PO 09/13/16 11:00 Divalproex Sodium (Depakote Er) 500 mg BEDTIME PO 09/13/16 22:00 Prazosin HCl (Minipres) 2 mg BEDTIME PO 09/13/16 22:00 Acetaminophen/ Hydrocodone Bitart ([place] 5-325mg) 1 each Q6H PRN PO FOR MODERATE PAIN 09/13/16 10:30 Cyclobenzaprine HCl (Flexeril) 10 mg TID PRN PO FOR MUSCLE SPASMS 09/13/16 10:45 UNV Quetiapine Fumarate (Seroquel) 25 mg TID PO 09/13/16 14:00 UNV Ranitidine HCl (Zantac Tab) 150 mg TIDWM PO 09/13/16 12:00 UNV Past Medical History Past Medical History: PAST PSYCHIATRIC HISTORY: -Previous hospitalization at [facility] -Most recent outpatient mental health treatment at [facility], and his prescribing provider is Dr. Rudolph -Reports previous diagnosis of PTSD, OCD, major depressive disorder recurrent, and anxiety -Post current medication regimen is doxepin, Seroquel (she takes 3 times a day), doxepin at bedtime which she states is been helpful for sleep -Recent medication trials include Prozac, Vistaril, Depakote, trazodone, Rozerem, Abilify, Risperdal -States that previous to recent connection with [facility] that he been off medications for couple of years because of loss of insurance coverage, and he has been using alcohol and marijuana to self medicate PAST FAMILY PSYCHIATRIC HISTORY: -Reports a brother that struggles with substance use and depression SOCIAL HISTORY: -Currently living with his grandmother here in [place] -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 Meds NPU Allergies Allergy/AdvReac Type Severity Reaction Status Date / Time yeung Allergy ALGY-Anaphy Verified 10/24/19 18:49 laxis PFSH NPU PFSH: Social History Smoking and tobacco status: current every day smoker Mental Status Exam MSE Comments: This is a well-nourished, slender, white male, with adequate dress, grooming, and eye contact. No abnormal movements. Cooperative with exam in no acute distress. Speech was normal rate and volume. Mood described as alright but really anxious; affect congruent. Thought process, organized. Thought content: patient denied any suicidal or homicidal ideation, there were no delusions reported or noted, patient denied any auditory or visual hallucinations. Attention, concentration, and memory appear intact but were not formally tested. He is alert and oriented times three. Insight and judgment are limited. Vitals/I&O/Wt Last Vital Signs Temp 97.9 F 11/01/19 06:00 Pulse 74 11/01/19 06:00 Resp 20 H 11/01/19 06:00 BP 121/82 11/01/19 06:00 Pulse Ox 98 10/31/19 22:00 Weight last 48 hrs Weight 61.235 kg Weight 61.235 kg Data NPU : 10/31/19 13:41 10/31/19 13:41 A&P Assessment and plan (1) Suicidal ideation: This is a 24 year old, white male, with a long history of depression, anxiety, and addiction with some significant concerns for malingering and drug seeking, who presents for second hospitalization in about ten or eleven days without appropriate follow-up for his addiction and mental health. Continue current medication. Will restart the Cymbalta. Look for non-habit, forming medication for anxiety. We will try Propranolol, but at this point Klonopin is an unlikely or any other benzo is unlikely decision and so I would not be surprised if he tried to leave against medical advice. Encourage individual, group, and milieu therapy. Continue q 15-minute checks for safety. Encourage discharge to a sober living facility at the highest level of care to which he is willing to commit. Status: Acute Code(s): R45.851 - Suicidal ideations (2) Panic disorder: Status: Acute Code(s): F41.0 - Panic disorder [episodic paroxysmal anxiety] (3) Major psychotic depression, recurrent: Status: Acute Code(s): F33.3 - Major depressive disorder, recurrent, severe with psychotic symptoms (4) Methamphetamine abuse: Status: Acute Code(s): F15.10 - Other stimulant abuse, uncomplicated (5) Malingering: Status: Acute Code(s): Z76.5 - Malingerer [conscious simulation] Involuntary Hold Information 96 Hour Hold: 96 Hour Involuntary Admission: No Attestations NPU Medical Necessity Statement*: Inpatient hospitalization is medically necessary and the clinically appropriate intervention at this time. The patient will be in the hospital for over two midnights. We will monitor medications and add medications and titrate as indicated. Likely length of stay is three to five days. Coding Level of Care Code Acute [facility] for Ronni Bazan Diagnoses Suicidal ideation R45.851 Panic disorder F41.0 Major psychotic depression, recurrent F33.3 Methamphetamine abuse F15.10 Malingering Z76.5
[2019-11-01] MEDS: nicotine 21 mg Patch 1 PATCH TRANSDERMA (08:30)
[2019-11-01] MEDS: OLANZapine ODT 5 MG TABLET PO ×2 (08:31→17:28)
[2019-11-01] MEDS: hyDROXYzine 25 mg Capsule 50 MG PO (13:15)
[2019-11-01 14:00] VITALS: BP 107/67; PULSE 96; RESP 17; TEMP 36.4; O2SAT 98
[2019-11-01] MEDS: acetaminophen 325 mg Tablet 650 MG PO (18:09)
[2019-11-01] MEDS: duloxetine 30 mg Capsule PO (21:24)
[2019-11-01] MEDS: trazodone 50 mg Tablet PO (21:24)
--- NOTE | 2019-11-01 21:24 | PC.NURSE ---
PT GIVEN HS CYMBALTA AND PRN TRAZODONE AT THIS TIME.
[2019-11-01 22:00] VITALS: RESP 24
[2019-11-02 06:00] VITALS: BP 109/64; PULSE 62; RESP 18; TEMP 36.4; O2SAT 98
[2019-11-02] MEDS: nicotine 21 mg Patch 1 PATCH TRANSDERMA (07:49)
[2019-11-02] MEDS: OLANZapine ODT 5 MG TABLET PO (07:50)
--- NOTE | 2019-11-02 07:52 | PC.NURSE ---
PRN ZYPREXA ZYDIS ZYPREXA ZYDIS 5MG PO PER PT C/O AGITATION/ANXIETY. WILL CONTINUE TO MONITOR FOR MEDICATION EFFECTIVENESS.
[2019-11-02] MEDS: acetaminophen 325 mg Tablet 650 MG PO (08:01)
--- NOTE | 2019-11-02 08:50 | PC.NURSE ---
PRN ZYPREXA ZYDIS FOLLOW UP MEDICATION EFFECTIVE. PATIENT LYING IN BED RESTING. RESPIRATIONS EVEN AND UNLABORED.
[2019-11-02 13:09] VITALS: BP 121/75; PULSE 95; RESP 18; TEMP 36.6; O2SAT 96
--- NOTE | 2019-11-02 13:55 | PM.NDC ---
Diagnoses at Discharge Discharge Diagnosis (1) Suicidal ideation: Status: Resolved (2) Panic disorder: Status: Acute (3) Major psychotic depression, recurrent: Status: Acute (4) Methamphetamine abuse: Status: Acute (5) Malingering: Status: Acute Reason for Visit Reason for Visit: Reason For Visit: mhe Brief History: HPI NPU History of Present Illness To Malhotra is a 24 year old male To presents today having just been discharged from here on 10-21-19. It is our understanding that he also went to another facility in the meantime possibly. He has a history of addiction and struggles with a lot of psychosocial challenges. He is not really forthright in his storytelling. He does present positive in UDS for amphetamines, benzodiazepines and marijuana. He got somewhat frustrated because one of the things he was upset about was the fact that his Klonopin was reportedly taken away in the previous hospitalization, but as we talked about his situation, what was identified was that he was speaking about being out of the Klonopin, but Dr. Duarte gave him a 30-day supply and reportedly he has refills, but he was only given 20 pills, so that he was not supposed to be taking it every day. He presents to us ultimately ten days removed from that script and so if he is out of the medication, he either diverted it or took two a day instead, which was not the plan at all given his addiction history. He was very upset with the clarity of my math and ended up punching something after we had that conversation because he was frustrated at my approach. We discussed my concerns about giving him benzodiazepine, but he ultimately reported that is what worked and that the Atenolol that was given to him was not helpful. I told him that I would deliberate over the decision but that likely I would look to something like Propranolol. We discussed the risks, benefits and alternatives of that, and he understood, but was very insistent that the Klonopin was taken away from him at the outside hospital, but his behavior surrounding this is very suggestive that it is not a good idea. We reviewed his recent hospitalization records, specifically the psychosocial information regarding past psychiatric hospitalizations which he has had a few as well as his addiction issues, and he denies there being significant changes. It is unclear that he actually has a place to go which might be impacting the situation as well. He also had hospitalizations in his youth. He endorses, which can be seen, elsewhere that there are family members with addiction issues and mental health issues, but he has been living with his grandmother but straining that relationship and that he continues to struggle with addiction and follow-up as an outpatient. Please see below for past evaluations and history of multiple medication trials. Per 10/2019 [facility] eval: HPI NPU History of Present Illness 24-year-old male who walked in on his own desiring help because he does not want to live anymore. He told the triage nurse that he wanted to hang himself. The triage nurse will do an affidavit. He told the ED physician he did not have a plan but he has tried to hang himself in the past. 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 Has not been on any prescription medication for many months. Has had a previous admission for suicidal ideation and on chart review appears that his plan was to hang himself. The patient says today he had the same plan. He feels hopeless. 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 He may be exhibiting psychotic symptoms on the job. He says he hears people in [facility] telling him he is crazy and believes that people are following him. For example, he thought that people were outside my office door, which I opened and no one was there. Review of Systems Narrative: Const: Denies: fever Eyes: Denies: change in vision ENMT: Denies: throat pain Card: Denies: chest pain Resp: Denies: shortness of breath GI: Denies: abdominal pain, nausea, vomiting or change in bowel habits Musc: Denies: muscle weakness Skin/Breast: Denies: rash Neuro: Denies: headache Psych: Reports: hopelessness and suicidal ideation Endo: Denies: excessive urination Misael/Lymph: Denies: easy bruising or easy bleeding All/Imm: Denies: hives Urologic symptoms are present. The patient's urine has blood red and smells intent . He denies pain or burning on urination. Microscopic examination confirms this with white cell casts, WBC, RBC and bacteria. Meds NPU Home Medications Medication Instructions Recorded Confirmed Type fovzlzimp-IL-QX-acetaminophen 2 cap PO Q4H PRN 10/16/19 10/16/19 History [Cough and Cold] Allergies Allergy/AdvReac Type Severity Reaction Status Date / Time yeung Allergy ALGY-Anaphy Verified 10/16/19 21:24 laxis yeung flavor Allergy ALGY-Anaphy Verified 10/16/19 21:24 laxis PFSH NPU PFSH: Social History Smoking and tobacco status: current every day smoker Other Psychiatric History: Other Psychiatric History: The patient said he was hospitalized for suicidal ideation and depressions in 2015. His psychotic symptoms (auditory hallucinations and ideas of reference) arose some 5 months ago. He has intermittently been on meth. Because his psychotic symptoms are persistent he does not believe the meth, being available intermittently, has anything to do with his psychosis. I respectfully disagree with him Supplemental [facility] Information: The patient states that meth abuse is widespread in his family. Per 2017 [facility] eval: History of Present Illness Date of Service: Sep 13, 2016 Chief Complaint: Suicidal ideation HPI: Mr. Malhotra is a 21-year-old male who is known to our behavioral health system who was admitted on a 96 hour hold in the context of expression of severe suicidal and homicidal ideation yesterday. Affidavit from his providers over at [facility] were submitted to support the 96 hour hold. Patient reports that yesterday he experiences severe suicidal ideation and some homicidal ideation the context of becoming very anxious and angry after he told his treatment providers and is for patient officer that he used hydrocodone from a friend to manage to his pain. He states that this was seen as a violation of his parole. Is because of his statements yesterday and his behavior that he was referred for admission in place on a 96 hour hold. He reports that approximately 1-2 weeks ago he wa taken off Wellbutrin and placed on the Seroquel because of worsening irritability and suicidal and homicidal ideation. He also reports experiencing variable mood, associated with poor focus, difficulty sitting still, anhedonia, social isolation. He admits that he can get really stressed out , describing episodes where he will feel emotionally confused have mixed thoughts, experience suicidal thinking sometimes angry sometimes homicidal thinking and during these times he can be calm behaviorally intense. He denies any violence towards anyone. He states that generally speaking he is alert anxious person, citing nervousness particularly at night that impacts his sleep he can wake him from sleep feeling anxious. He does struggle with chronic back pain and he states that when he becomes anxious vertically at night that he experiences some spasms in his back. For this reason his PCP has prescribed Flexeril which has been helpful. Patient has been at [facility] starting with the residential program in June 2016, and his transition to outpatient. He does report a history of methamphetamine use in the past and but he has been clean for 2 years. He entered into treatment at [facility] for alcohol and marijuana use, and states that he has been clean and sober since that time. He reports that the use of the hydrocodone was the first substance that he had taken, and that he had taken this in the context of having persisting to his pain. Patient reports that he is been struggling with tooth pain now for the past 6 months but within the past week that his garden specifically worse. He complains of throbbing tooth pain upper and lower on both sides mostly in the back suggesting the possibility of either molar infection, or pain associated with infected wisdom teeth. He states that he is aware that his left upper molar in the back is checked and this has been giving him difficulty for some time. He denies any symptoms consistent with lianne or hypomania. He does report a previous history of PTSD. Allergies: Coded Allergies: YEUNG FLAVOR (Unverified Allergy, Unknown, 09/03/16) Active Meds: Hospital Course Hospital Course To presented to the emergency room endorsing lethality and continuing what appears to be a pattern of overuse of inpatient hospitalizations endorsing that he needed to be stabilized on his medication. He was admitted to the neuro psych unit and quickly acclimated to the individual, group and milieu therapies provided. It became clear during the hospitalization that is most strong focus was on getting his Klonopin restarted and he should still have Klonopin from his last hospitalization so we advised him that we would not be restarting the Klonopin with led to a couple outburst and then ultimately he has to be discharged. There were no changes made in his medication regimen. During the hospitalization he had routine laboratory studies which were within normal limits except for a few outliers. Additionally there was a general medical evaluation which was also within normal limits and revealed no new acute processes. Discharge Summary At the time of discharge he denied any lethality, his mood and anxiety appeared to be under control, there was no psychosis reported. He endorsed a plan to follow-up with outpatient services and recommendations provided by the team. He endorsed a plan to avoid all drugs of abuse. He was evaluated and deemed to be absent credible lethality and requested to be discharged and so he was allowed to leave. Involuntary Hold Information 96 Hour Hold: 96 Hour Involuntary Admission: No Mental Status Exam MSE Comments: This is a well-nourished, slender, white male, with adequate dress, grooming, and eye contact. No abnormal movements. Cooperative with exam in no acute distress. Speech was normal rate and volume. Mood described as alright but very anxious; affect calm. Thought process, organized. Thought content: patient denied any suicidal or homicidal ideation, there were no delusions reported or noted, patient denied any auditory or visual hallucinations. Attention, concentration, and memory appear intact but were not formally tested. He is alert and oriented times three. Insight and judgment are limited. Discharge Data Vitals: Last Vital Signs Temp 97.8 F 11/02/19 13:09 Pulse 95 11/02/19 13:09 Resp 18 11/02/19 13:09 BP 121/75 11/02/19 13:09 Pulse Ox 96 11/02/19 13:09 Discharge Plan Discharge Patient Disposition: Home, Self-Care Condition: Stable Prescriptions: Continued trazodone 100 mg Tablet 100 mg PO BEDTIME Qty: 30 RF: 4 duloxetine 30 mg Capsule,Delayed Release(Dr/Ec) 30 mg PO DAILY Qty: 30 RF: 4 Discontinued sulfamethoxazole-trimethoprim 800-160 mg Tablet 1 tab PO BID Qty: 8 RF: 0 atenolol 50 mg Tablet 25 mg PO DAILY Qty: 30 RF: 4 clonazepam 1 mg Tablet 1 mg PO DAILY PRN (Reason: Anxiety) Qty: 20 RF: 1 No Action Zofran 4 mg tablet 4 mg PO Q6H PRN (Reason: nausea and vomiting) Qty: 20 RF: 0 Discharge Orders: Discharge Order (Routine); Ordered 11/02/19 Ordered By: Giorgi Dalton Referrals: [facility] Behavior[facility] [Outside] (be sure to contact [facility] as soon as possible about getting your intake done. ) [facility] [Outside] (If you need substance abuse treatment, [facility] has outpatient and residential services. ) Discharge Diet: Regular Discharge Activity: Resume usual activity Discharge Date/Time: 11/02/19 15:14 Discharge Attestations NPU Time Spent in Discharge Care*: less than 30 min Specific Discharge Activities: Specific discharge activities: educating patient, discussing with case advocate/social workers/dc planners, documenting/other paperwork and evaluating patient/reviewing data Coding Level of Care Code Acute Nuclear Reactor Technician for [facility] Fwd Diagnoses Suicidal ideation R45.851 Panic disorder F41.0 Major psychotic depression, recurrent F33.3 Methamphetamine abuse F15.10 Malingering Z76.5
[2019-11-02 15:00] VITALS: BP 121/75; PULSE 95; RESP 18; TEMP 36.6; O2SAT 96
[2019-11-02 15:03] VITALS: BP 121/75; PULSE 95; RESP 18; TEMP 36.6; O2SAT 96
== END 2019-11-02 15:14 | disposition home or self-care (01) | DRG 885 ==
LOC: ER 14:17 → NP 14:33
PROVIDERS: Admitting Provider Psychiatry & Neurology Psychiatry; Emergency Provider Emergency Medicine; Visit Provider Psychiatry & Neurology Psychiatry
DX: F33.3 Major depressive disorder, recurrent, severe with psychotic symptoms (principal); R45.851 Suicidal ideations; F41.0 Panic disorder [episodic paroxysmal anxiety]; F15.10 Other stimulant abuse, uncomplicated; F17.210 Nicotine dependence, cigarettes, uncomplicated; Z79.811 Long term (current) use of aromatase inhibitors; Z76.5 Malingerer [conscious simulation]
CPT/HCPCS: 12345; 36415; 80053; 80306; 80307; 85025; 99284; A9270

== ENCOUNTER 2019-11-04 22:24 | Emergency (ER) | payer SELFPAY ==
[2019-11-04 22:25] VITALS: BP 123/91; PULSE 118; RESP 18; TEMP 36.7; O2SAT 95; BMI 18.6
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
--- NOTE | 2019-11-04 22:25 | XR_ITS ---
WS: [id number] PELVIS: AP VIEW SUBMITTED HISTORY: fall COMPARISON: None available. Bones and soft tissues of the pelvis are intact. No fracture or dislocation. XR/XR pelvis 1-2V* [id number] IMPRESSION: Negative pelvis.
--- NOTE | 2019-11-04 22:25 | XR_ITS ---
WS: [id number] PORTABLE CHEST HISTORY: cough COMPARISON: 07/20/2010 Mild pulmonary hyperinflation. No discrete nodule. No mass. No pleural effusion or pneumothorax. Cardiac size: Normal. Mediastinum/Aorta: Normal mediastinum. No osseous abnormality seen. XR/XR chest 1V portable [id number] IMPRESSION: Unremarkable portable chest.
--- NOTE | 2019-11-04 22:26 | ECG_ITS ---
Measurements Intervals [place] Rate: 115 P: 58 ND: 149 QRS: 21 QRSD: 85 T: 62 QT: 317 QTc: 439 SINUS TACHYCARDIA LEFT ATRIAL ENLARGEMENT [-0.15mV P WAVE IN V1/V2] POSSIBLE RIGHT VENTRICULAR CONDUCTION DELAY [RSR (QR) IN V1/V2] Compared to ECG 10/20/2019 08:51:35 T-wave abnormality no longer present Electronically Signed On 11-05-2019 18:12:42 CDT by Lizabeth Padron M.D. [email or web address]
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
[2019-11-04 22:48] VITALS: O2SAT 98
[2019-11-04 22:56] LABS: Basophils # 0.1 10^3/uL (0.0-0.1); Basophils % 0.5 %; Eosinophils # 0.3 10^3/uL (0.0-0.8); Eosinophils % 2.2 %; Hematocrit 43.2 % (42.0-52.0); Hemoglobin 13.7 g/dL (11.7-16.6); Lymphocytes # 3.7 10^3/uL (0.8-4.8); Lymphocytes % 27.6 %; Mean Corpuscular HGB Conc 31.7 g/dL (30.0-36.0); Mean Corpuscular Hemoglobin 27.6 pg (28.0-34.0); Mean Corpuscular Volume 86.9 fL (80-94); Monocytes # 0.9 10^3/uL (0.2-0.9); Monocytes % 6.7 %; Neutrophils # 8.3 10^3/uL (1.8-7.7); Neutrophils % 62.1 %; Nucleated Red Blood Cells % 0 %; Platelet Count 428 10^3/cmm (130-400); Red Blood Count 4.97 10^6/uL (4.1-5.3); Red Cell Distribution Width 14.8 % (12.1-15.1); White Blood Count 13.4 10^3/uL (4.0-10.0)
--- NOTE | 2019-11-04 22:56 | ED_ITS ---
HPI - Head Injury General: Chief complaint: Head Injury Stated complaint: FALL/ETOH Time Seen by Provider: 11/04/19 22:25 [facility] ED PFSH: Medical History Major psychotic depression, recurrent Methamphetamine abuse Social History Smoking and tobacco status: current every day smoker Procedures Laceration Laceration 1: Site: face Side (If applicable): right Size (cm): 3 Description: stellate Local Anesthetic: lidocaine 1% Amount of anesthesia used (mL): 3 Pre-repair: wound explored Skin layer closed with: other (zeina) Number of sutures: 5 Technique: simple, interrupted (5 zeina used to approximately margins of the laceration. Good results noted.) Course Vital Signs: Vital signs: Vital Signs Temperature 98.1 F 11/04/19 22:25 Pulse Rate 118 H 11/04/19 22:25 Respiratory Rate 18 11/04/19 22:25 Blood Pressure 123/91 11/04/19 22:25 Pulse Oximetry 98 11/04/19 22:48 MDM - Head Injury Lab Data: Labs: Lab Results 11/04/19 Range/Units 22:45 WBC 13.4 H (4.0-10.0) 10^3/ uL RBC 4.97 (4.1-5.3) 10^6/u L Hgb 13.7 (11.7-16.6) g/dL Hct 43.2 (42.0-52.0) % MCV 86.9 (80-94) fL MCH 27.6 L (28.0-34.0) pg MCHC 31.7 (30.0-36.0) g/dL RDW 14.8 (12.1-15.1) % Plt Count 428 H (130-400) 10^3/c mm MPV 10.0 (7.4-10.4) fL Neut % (Auto) 62.1 % Lymph % (Auto) 27.6 % [place] % (Auto) 6.7 % Eos % (Auto) 2.2 % Baso % (Auto) 0.5 % Neut # (Auto) 8.3 H (1.8-7.7) 10^3/u L Lymph # (Auto) 3.7 (0.8-4.8) 10^3/u L [place] # (Auto) 0.9 (0.2-0.9) 10^3/u L Eos # (Auto) 0.3 (0.0-0.8) 10^3/u L Baso # (Auto) 0.1 (0.0-0.1) 10^3/u L Nucleated RBC % (a uto) 0 % Nucleated RBCs # 0.0 /100WBC Discharge Plan Discharge Prescriptions: No Action trazodone 100 mg Tablet 100 mg PO BEDTIME Qty: 30 RF: 4 duloxetine 30 mg Capsule,Delayed Release(Dr/Ec) 30 mg PO DAILY Qty: 30 RF: 4 Coding Level of Care Code ED Traffic Sergeant for Ronni Bazan
[2019-11-04] MEDS: haloperidol inj 5 mg/mL INJ 1 mL IM (22:59)
[2019-11-04] MEDS: sodium chloride 0.9% 1,000 ML 999 ML IV (22:59)
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
[2019-11-04] MEDS: ziprasidone 20 mg/mL SDV 10 MG IM (23:33)
[2019-11-04] MEDS: diphenhydrAMINE 50 mg/mL SDV 1mL 25 MG IVP (23:33)
[2019-11-04 23:43] LABS: Alanine Aminotransferase 74 U/L (0-41); Albumin Level 4.4 g/dL (3.5-5.2); Alcohol Level 239 mg/dL (0-10); Alkaline Phosphatase 94 IU/L (40-130); Anion Gap 23.6 (5-19); Aspartate Amino Transferase 58 U/L (0-40); Blood Urea Nitrogen 12 mg/dL (6-20); Calcium 9.7 mg/dL (8.5-10.5); Carbon Dioxide 20 mmol/L (22-29); Chloride 102 mmol/L (98-107); Globulin 3.3 g/dL (1.3-4.6); Glucose 104 mg/dL (65-115); Magnesium 2.4 mg/dL (1.7-2.3); Osmolality Calculated 290 mOsm/kg (285-295); Potassium 3.6 mmol/L (3.5-5.1); Sodium 142 mmol/L (136-145); Total Bilirubin 0.2 mg/dL (0.15-1.2); Total Protein 7.7 g/dL (6.6-8.7)
[2019-11-05 00:56] VITALS: BP 97/53; PULSE 115; O2SAT 96
[2019-11-05 03:22] VITALS: BP 108/49; PULSE 94; O2SAT 99
--- NOTE | 2019-11-05 03:30 | PC.NURSE ---
pt up to ambulate to restroom at this time without difficulty
[2019-11-05 08:13] VITALS: PULSE 115; RESP 16; O2SAT 97
== END 2019-11-05 08:16 | disposition home or self-care (01) ==
PROVIDERS: Emergency Provider Emergency Medicine
DX: S01.81XA Laceration without foreign body of other part of head, initial encounter (principal); F10.920 Alcohol use, unspecified with intoxication, uncomplicated; F17.200 Nicotine dependence, unspecified, uncomplicated; W22.8XXA Striking against or struck by other objects, initial encounter; F41.0 Panic disorder [episodic paroxysmal anxiety]; F33.3 Major depressive disorder, recurrent, severe with psychotic symptoms
CPT/HCPCS: 12013; 12345; 36415; 70450; 71045; 72125; 72170; 80053; 80307; 83735; 85025; 93005; 96360; 96361; 96372; 96375; 99283; 99285; J1200; J1630; J3486; J7030

== ENCOUNTER 2019-11-08 00:34 | Emergency (ER) | payer SELFPAY ==
[2019-11-08 00:39] VITALS: PULSE 115; RESP 18; TEMP 36.9; O2SAT 96; BMI 22.2
[2019-11-08 00:45] VITALS: BP 156/98
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
--- NOTE | 2019-11-08 01:16 | PC.NURSE ---
PATIENT TO CT
[2019-11-08] MEDS: tetanus-dipt-pertussis 0.5 mL SDV IM (01:31)
[2019-11-08] MEDS: ziprasidone 20 mg/mL SDV 10 MG IM (01:54)
[2019-11-08 02:20] VITALS: BP 156/101; PULSE 108; RESP 17; O2SAT 98
== END 2019-11-08 02:22 | disposition home or self-care (01) ==
PROVIDERS: Emergency Provider Physician Assistant
DX: S01.01XA Laceration without foreign body of scalp, initial encounter (principal); W22.8XXA Striking against or struck by other objects, initial encounter; F33.3 Major depressive disorder, recurrent, severe with psychotic symptoms; F15.10 Other stimulant abuse, uncomplicated; F17.200 Nicotine dependence, unspecified, uncomplicated; Z23 Encounter for immunization
CPT/HCPCS: 12001; 12345; 70450; 90471; 90715; 96372; 99281; 99283; J2001; J3486

== ENCOUNTER 2019-11-09 04:55 | Emergency (ER) | payer SELFPAY ==
[2019-11-09 04:59] VITALS: BP 145/100; PULSE 86; RESP 16; TEMP 36.7; O2SAT 100; BMI 20.9
--- NOTE | 2019-11-09 05:14 | ECG_ITS ---
Measurements Intervals Freedom Rate: 81 P: 40 FL: 141 QRS: 35 QRSD: 85 T: 51 QT: 341 QTc: 396 SINUS RHYTHM POSSIBLE RIGHT VENTRICULAR CONDUCTION DELAY [RSR (QR) IN V1/V2] VOLTAGE CRITERIA FOR LVH [MEETS CRITERIA IN ONE OF: R(aVL), S(V1), R(V5), R(V5/V6) MODERATE ST DEPRESSION [0.05+ mV ST DEPRESSION] Compared to ECG 11/04/2019 22:55:16 Left ventricular hypertrophy now present ST (T wave) deviation now present Sinus tachycardia no longer present Atrial abnormality no longer present Electronically Signed On 11-09-2019 18:32:16 CDT by Lizabeth Padron M.D. [email or web address]
--- NOTE | 2019-11-09 05:14 | XR_ITS ---
WS: [id number] CHEST XRAY TECHNIQUE: Portable chest. CLINICAL INFORMATION: COMPARISON: November 04, 2019 FINDINGS: Heart: Normal cardiac silhouette. Lungs: Lungs are clear. No consolidation or pleural effusion. Bones: Normal visualized bony structures. XR/XR chest 1V portable [id number] IMPRESSION: Normal chest
--- NOTE | 2019-11-09 05:22 | ED_ITS ---
Documented by User: Ronald Sarabia DO 11/09/19 05:52 HPI - Psych General: Chief Complaint: Psychiatric Symptoms Stated Complaint: si Time Seen by Provider: 11/09/19 05:03 History of Present Illness: MD complaint: suicidal ideation Onset (ago): hour(s) Duration: constant History of same: Yes Exacerbating factors: drug use Context: recent drug abuse and not taking psychiatric medications Associated psychiatric symptoms: depression and suicidal ideation Associated symptoms: Reports suicidal ideation; Deny auditory hallucinations, visual hallucinations or homicidal ideation If self harm: admits thoughts of self harm Details of plan: I would shoot myself, or hang myself . Review of Systems Const: Denies: fever or chills Eyes: Denies: change in vision or blurry vision ENMT: Denies: painful swallowing, swelling of lips/tongue, bleeding gums, dental pain, Change in hearing or facial/sinus pain Card: Reports: chest pain; Denies: palpitations, irregular heart rhythm or edema Resp: Denies: shortness of breath, productive cough, non-productive cough or wheezing GI: Denies: abdominal pain, nausea or vomiting : Denies: difficulty urinating, painful urination or blood in urine Musc: Denies: neck pain, back pain, redness or joint warmth Skin/Breast: Denies: rash, itching or redness Neuro: Reports: headache; Denies: dizziness, vertigo or seizure-like activity Psych: Reports: suicidal ideation; Denies: visual hallucinations, auditory hallucinations or homicidal ideation PFSH ED PFSH: Social History Smoking and tobacco status: current every day smoker Physical Exam Const: GENERAL APPEARANCE: disheveled ORIENTATION/CONSCIOUSNESS: Yes oriented to person, Yes oriented to place and Yes oriented to time HENMT: COMMON NORMALS: normocephalic, external ears normal and external nose normal HEAD & SCALP: normocephalic and scalp tenderness FACE & SINUS: normal facial exam NOSE: external nose normal and no nasal discharge EXTERNAL EAR: Yes external ears normal MOUTH: tongue normal THROAT: posterior oropharynx normal; no peritonsillar mass Eye: COMMON NORMALS: PERRL, EOMs intact bilaterally and conjunctivae normal EYELID: eyelids normal CONJUNCTIVA: Yes conjunctivae normal PUPIL: Yes PERRL Neck/C-Spine: COMMON NORMALS: full ROM GENERAL: No tracheal deviation Chest: COMMONS NORMALS: inspection of chest normal CHEST: No tenderness Resp: COMMON NORMALS: clear to auscultation bilaterally EFFORT & INSPECTION: No tachypneic, No respiratory distress, No retractions, No uses accessory muscles and No tracheal deviation AUSCULTATION: clear to auscultation bilaterally, no rhonchi, no wheezes and lung sounds not diminished Cardio: COMMON NORMALS: regular rate and regular rhythm RATE: regular rate RHYTHM: regular rhythm HEART SOUNDS: no murmurs PERIPHERAL PULSES: radial pulses present GI: INSPECTION: No abdominal distension AUSCULTATION: No hyperactive bowel sounds and No hypoactive bowel sounds PALPATION: No guarding and No rigid Neuro: SENSORIUM/ORIENTATION: Yes oriented to person, Yes oriented to place and Yes oriented to time Psych: COMMON NORMALS: speech normal and denies hallucinations APPEARANCE: Yes disheveled ATTITUDE: Yes calm and Yes evasive ACTIVITY/MOTOR BEHAVIOR: Yes psychomotor slowing SPEECH: Yes normal speech MOOD & AFFECT: Yes depressed mood THOUGHT CONTENT: Yes suicidality and No hallucination(s) ATTENTION/CONCENTRATION: No concentration grossly intact MEMORY/COGNITION: Yes memory grossly intact INSIGHT: limited Skin: COMMON NORMALS: no rashes or lesions noted GENERAL SKIN EXAM: no rashes or lesions noted MDM - Psych MDM Narrative: Medical decision making narrative: 24-year-old male frequent patient to the ER. He presents a little more than 24 hours after his last presentation. On his prior presentation, he had been head injured and was intoxicated with methamphetamine. This morning he complains of being significantly depressed and suicidal. He replies with several plans. He has not used methamphetamine in over 24 hours he says. He is also not been ill otherwise. We are awaiting some lab results. He will be checked out to Dr. Willams Lab Data: Labs: Lab Results 11/09/19 11/09/19 11/09/19 Range/Units 05:19 05:19 05:28 WBC 11.0 H (4.0-10.0) 10^3/ uL RBC 4.98 (4.1-5.3) 10^6/u L Hgb 13.7 (11.7-16.6) g/dL Hct 43.0 (42.0-52.0) % MCV 86.3 (80-94) fL MCH 27.5 L (28.0-34.0) pg MCHC 31.9 (30.0-36.0) g/dL RDW 14.8 (12.1-15.1) % Plt Count 375 (130-400) 10^3/c mm MPV 10.0 (7.4-10.4) fL Neut % (Auto) 70.1 % Lymph % (Auto) 18.8 % [place] % (Auto) 6.9 % Eos % (Auto) 3.1 % Baso % (Auto) 0.5 % Neut # (Auto) 7.7 (1.8-7.7) 10^3/u L Lymph # (Auto) 2.1 (0.8-4.8) 10^3/u L [place] # (Auto) 0.8 (0.2-0.9) 10^3/u L Eos # (Auto) 0.3 (0.0-0.8) 10^3/u L Baso # (Auto) 0.1 (0.0-0.1) 10^3/u L Nucleated RBC % (a uto) 0 % Nucleated RBCs # 0.0 /100WBC Sodium 140 (136-145) mmol/L Potassium 3.7 (3.5-5.1) mmol/L Chloride 103 (98-107) mmol/L Carbon Dioxide 24 (22-29) mmol/L Anion Gap 16.7 (5-19) BUN 12 (6-20) mg/dL Creatinine 0.9 (0.7-1.2) mg/dL GFR Calculation 102.8 (90-130) mL/min Glucose 91 (65-115) mg/dL Calculated Osmolal ity 286 (285-295) mOsm/k g Calcium 9.4 (8.5-10.5) mg/dL Total Bilirubin 0.3 (0.15-1.2) mg/dL AST 37 (0-40) U/L ALT 44 H (0-41) U/L Alkaline Phosphata se 106 (40-130) IU/L Total Protein 8.1 (6.6-8.7) g/dL Albumin 4.3 (3.5-5.2) g/dL Globulin 3.8 (1.3-4.6) g/dL Urine Color Yellow (Yellow) Urine Appearance Clear (CLEAR) Urine pH 5 (5-7) Ur Specific Gravit y 1.030 (1.005-1.030) Urine Protein Neg (Negative) Urine Glucose (UA) Norm (Normal) Urine Ketones 1+ H (Negative) Urine Blood Neg (Negative) Urine Nitrate Negative (Negative) Urine Bilirubin Neg (NEGATIVE) Urine Urobilinogen 1 H (Negative) mg/dL Ur Leukocyte Kathie ase Negative (Negative) Salicylates < 0.3 L (3-10) mg/dL Urine Opiates Scre en (Negative) ng/mL Acetaminophen < 5.0 L (10-30) ug/mL Ur Barbiturates Sc reen (Negative) ng/mL Ur Phencyclidine S crn (Negative) ng/mL Ur Amphetamines Sc reen (Negative) ng/mL U Benzodiazepines Scrn (Negative) ng/mL Urine Cocaine Scre en (Negative) ng/mL U Marijuana (THC) Screen (Negative) ng/mL Ethyl Alcohol < 10 (0-10) mg/dL 11/09/19 Range/Units 05:28 WBC (4.0-10.0) 10^3/ uL RBC (4.1-5.3) 10^6/u L Hgb (11.7-16.6) g/dL Hct (42.0-52.0) % MCV (80-94) fL MCH (28.0-34.0) pg MCHC (30.0-36.0) g/dL RDW (12.1-15.1) % Plt Count (130-400) 10^3/c mm MPV (7.4-10.4) fL Neut % (Auto) % Lymph % (Auto) % [place] % (Auto) % Eos % (Auto) % Baso % (Auto) % Neut # (Auto) (1.8-7.7) 10^3/u L Lymph # (Auto) (0.8-4.8) 10^3/u L [place] # (Auto) (0.2-0.9) 10^3/u L Eos # (Auto) (0.0-0.8) 10^3/u L Baso # (Auto) (0.0-0.1) 10^3/u L Nucleated RBC % (a uto) % Nucleated RBCs # /100WBC Sodium (136-145) mmol/L Potassium (3.5-5.1) mmol/L Chloride (98-107) mmol/L Carbon Dioxide (22-29) mmol/L Anion Gap (5-19) BUN (6-20) mg/dL Creatinine (0.7-1.2) mg/dL GFR Calculation (90-130) mL/min Glucose (65-115) mg/dL Calculated Osmolal ity (285-295) mOsm/k g Calcium (8.5-10.5) mg/dL Total Bilirubin (0.15-1.2) mg/dL AST (0-40) U/L ALT (0-41) U/L Alkaline Phosphata se (40-130) IU/L Total Protein (6.6-8.7) g/dL Albumin (3.5-5.2) g/dL Globulin (1.3-4.6) g/dL Urine Color (Yellow) Urine Appearance (CLEAR) Urine pH (5-7) Ur Specific Gravit y (1.005-1.030) Urine Protein (Negative) Urine Glucose (UA) (Normal) Urine Ketones (Negative) Urine Blood (Negative) Urine Nitrate (Negative) Urine Bilirubin (NEGATIVE) Urine Urobilinogen (Negative) mg/dL Ur Leukocyte Kathie ase (Negative) Salicylates (3-10) mg/dL Urine Opiates Scre en Negative (Negative) ng/mL Acetaminophen (10-30) ug/mL Ur Barbiturates Sc reen Negative (Negative) ng/mL Ur Phencyclidine S crn Negative (Negative) ng/mL Ur Amphetamines Sc reen Positive H (Negative) ng/mL U Benzodiazepines Scrn Negative (Negative) ng/mL Urine Cocaine Scre en Negative (Negative) ng/mL U Marijuana (THC) Screen Positive H (Negative) ng/mL Ethyl Alcohol (0-10) mg/dL Discharge Plan Discharge Patient Disposition: Home, Self-Care Clinical Impression: Methamphetamine abuse, Major psychotic depression, recurrent Condition: Stable Prescriptions: No Action trazodone 100 mg Tablet 100 mg PO BEDTIME Qty: 30 RF: 4 duloxetine 30 mg Capsule,Delayed Release(Dr/Ec) 30 mg PO DAILY Qty: 30 RF: 4 ondansetron HCl [Zofran] 4 mg tablet 4 mg PO Q6H PRN (Reason: nausea and vomiting) Qty: 20 RF: 0 clonazepam 1 mg tablet 1 mg PO DAILY RF: 0 atenolol 25 mg Tablet 25 mg PO DAILY RF: 0 Zyprexa 5 mg Tablet 5 mg PO DAILY RF: 0 Discharge Orders: Discharge Order (Routine); Ordered 11/09/19 Ordered By: Jarret Willams Discharge Diet: Usual diet Discharge Activity: Resume usual activity Activity Restrictions/Additional Instructions: You were seen in consultation with Dr. Dalton. Since you refused admission and he did not feel he required admission for your own safety you are being discharged. You should follow-up with behavioral health. A case monitor will call to make sure you have an appointment. I would also recommend that you follow-up with [facility] or another similar agency for assistance with substa nce abuse. Discharge Date/Time: 11/09/19 10:41 Sign Out Sign Out Data: Patient Sign Out occurred on 11/09/19 at 06:17. Patient's care was discussed, and care was transferred from to Jarret Willams DO. Coding Level of Care Code ED Drier Operator Head for Chg Fwd Exam Comprehensive Documented by User: Jarret Willams DO 11/10/19 06:13 HPI - Psych General: Chief Complaint: Psychiatric Symptoms Stated Complaint: si Time Seen by Provider: 11/09/19 05:03 PFSH ED PFSH: Social History Smoking and tobacco status: current every day smoker MDM - Psych MDM Narrative: Medical decision making narrative: 620 - Discussed with Dr. Dalton patient is making suicidal threats with a plan however he has been here multiple times related to his drug and alcohol use and has been admitted p reviously Dr. Dalton will review his chart and call back with the recommended disposition. [phone] -discussed with Dr. Dalton he will come to see the patient in the emergency room. Dr. Dalton came to the emergency room to see the patient patient was quite angry he did not want to see Dr. Dalton additionally he was demanding specific medications. Dr. Dalton did do a consult note to see the report in the chart. Dr. Dalton offered him admission patient refused stating he wanted specific medications and a specific doctor Dr. Datlon told him that would not necessarily be possible. Patient refuses to agree to see Dr. Dalton. Dr. Dalton felt he was not a danger to himself or others after assessing him and will discharge him home per his recommendation Lab Data: Labs: Lab Results 11/09/19 11/09/19 11/09/19 Range/Units 05:19 05:19 05:28 WBC 11.0 H (4.0-10.0) 10^3/ uL RBC 4.98 (4.1-5.3) 10^6/u L Hgb 13.7 (11.7-16.6) g/dL Hct 43.0 (42.0-52.0) % MCV 86.3 (80-94) fL MCH 27.5 L (28.0-34.0) pg MCHC 31.9 (30.0-36.0) g/dL RDW 14.8 (12.1-15.1) % Plt Count 375 (130-400) 10^3/c mm MPV 10.0 (7.4-10.4) fL Neut % (Auto) 70.1 % Lymph % (Auto) 18.8 % [place] % (Auto) 6.9 % Eos % (Auto) 3.1 % Baso % (Auto) 0.5 % Neut # (Auto) 7.7 (1.8-7.7) 10^3/u L Lymph # (Auto) 2.1 (0.8-4.8) 10^3/u L [place] # (Auto) 0.8 (0.2-0.9) 10^3/u L Eos # (Auto) 0.3 (0.0-0.8) 10^3/u L Baso # (Auto) 0.1 (0.0-0.1) 10^3/u L Nucleated RBC % (a uto) 0 % Nucleated RBCs # 0.0 /100WBC Sodium 140 (136-145) mmol/L Potassium 3.7 (3.5-5.1) mmol/L Chloride 103 (98-107) mmol/L Carbon Dioxide 24 (22-29) mmol/L Anion Gap 16.7 (5-19) BUN 12 (6-20) mg/dL Creatinine 0.9 (0.7-1.2) mg/dL GFR Calculation 102.8 (90-130) mL/min Glucose 91 (65-115) mg/dL Calculated Osmolal ity 286 (285-295) mOsm/k g Calcium 9.4 (8.5-10.5) mg/dL Total Bilirubin 0.3 (0.15-1.2) mg/dL AST 37 (0-40) U/L ALT 44 H (0-41) U/L Alkaline Phosphata se 106 (40-130) IU/L Total Protein 8.1 (6.6-8.7) g/dL Albumin 4.3 (3.5-5.2) g/dL Globulin 3.8 (1.3-4.6) g/dL Urine Color Yellow (Yellow) Urine Appearance Clear (CLEAR) Urine pH 5 (5-7) Ur Specific Gravit y 1.030 (1.005-1.030) Urine Protein Neg (Negative) Urine Glucose (UA) Norm (Normal) Urine Ketones 1+ H (Negative) Urine Blood Neg (Negative) Urine Nitrate Negative (Negative) Urine Bilirubin Neg (NEGATIVE) Urine Urobilinogen 1 H (Negative) mg/dL Ur Leukocyte Kathie ase Negative (Negative) Salicylates < 0.3 L (3-10) mg/dL Urine Opiates Scre en (Negative) ng/mL Acetaminophen < 5.0 L (10-30) ug/mL Ur Barbiturates Sc reen (Negative) ng/mL Ur Phencyclidine S crn (Negative) ng/mL Ur Amphetamines Sc reen (Negative) ng/mL U Benzodiazepines Scrn (Negative) ng/mL Urine Cocaine Scre en (Negative) ng/mL U Marijuana (THC) Screen (Negative) ng/mL Ethyl Alcohol < 10 (0-10) mg/dL 11/09/19 Range/Units 05:28 WBC (4.0-10.0) 10^3/ uL RBC (4.1-5.3) 10^6/u L Hgb (11.7-16.6) g/dL Hct (42.0-52.0) % MCV (80-94) fL MCH (28.0-34.0) pg MCHC (30.0-36.0) g/dL RDW (12.1-15.1) % Plt Count (130-400) 10^3/c mm MPV (7.4-10.4) fL Neut % (Auto) % Lymph % (Auto) % [place] % (Auto) % Eos % (Auto) % Baso % (Auto) % Neut # (Auto) (1.8-7.7) 10^3/u L Lymph # (Auto) (0.8-4.8) 10^3/u L [place] # (Auto) (0.2-0.9) 10^3/u L Eos # (Auto) (0.0-0.8) 10^3/u L Baso # (Auto) (0.0-0.1) 10^3/u L Nucleated RBC % (a uto) % Nucleated RBCs # /100WBC Sodium (136-145) mmol/L Potassium (3.5-5.1) mmol/L Chloride (98-107) mmol/L Carbon Dioxide (22-29) mmol/L Anion Gap (5-19) BUN (6-20) mg/dL Creatinine (0.7-1.2) mg/dL GFR Calculation (90-130) mL/min Glucose (65-115) mg/dL Calculated Osmolal ity (285-295) mOsm/k g Calcium (8.5-10.5) mg/dL Total Bilirubin (0.15-1.2) mg/dL AST (0-40) U/L ALT (0-41) U/L Alkaline Phosphata se (40-130) IU/L Total Protein (6.6-8.7) g/dL Albumin (3.5-5.2) g/dL Globulin (1.3-4.6) g/dL Urine Color (Yellow) Urine Appearance (CLEAR) Urine pH (5-7) Ur Specific Gravit y (1.005-1.030) Urine Protein (Negative) Urine Glucose (UA) (Normal) Urine Ketones (Negative) Urine Blood (Negative) Urine Nitrate (Negative) Urine Bilirubin (NEGATIVE) Urine Urobilinogen (Negative) mg/dL Ur Leukocyte Kathie ase (Negative) Salicylates (3-10) mg/dL Urine Opiates Scre en Negative (Negative) ng/mL Acetaminophen (10-30) ug/mL Ur Barbiturates Sc reen Negative (Negative) ng/mL Ur Phencyclidine S crn Negative (Negative) ng/mL Ur Amphetamines Sc reen Positive H (Negative) ng/mL U Benzodiazepines Scrn Negative (Negative) ng/mL Urine Cocaine Scre en Negative (Negative) ng/mL U Marijuana (THC) Screen Positive H (Negative) ng/mL Ethyl Alcohol (0-10) mg/dL Discharge Plan Discharge Patient Disposition: Home, Self-Care Clinical Impression: Methamphetamine abuse, Major psychotic depression, recurrent Condition: Stable Prescriptions: No Action trazodone 100 mg Tablet 100 mg PO BEDTIME Qty: 30 RF: 4 duloxetine 30 mg Capsule,Delayed Release(Dr/Ec) 30 mg PO DAILY Qty: 30 RF: 4 ondansetron HCl [Zofran] 4 mg tablet 4 mg PO Q6H PRN (Reason: nausea and vomiting) Qty: 20 RF: 0 clonazepam 1 mg tablet 1 mg PO DAILY RF: 0 atenolol 25 mg Tablet 25 mg PO DAILY RF: 0 Zyprexa 5 mg Tablet 5 mg PO DAILY RF: 0 Discharge Orders: Discharge Order (Routine); Ordered 11/09/19 Ordered By: Jarret Willams Discharge Diet: Usual diet Discharge Activity: Resume usual activity Activity Restrictions/Additional Instructions: You were seen in consultation with Dr. Dalton. Since you refused admission and he did not feel he required admission for your own safety you are being discharged. You should follow-up with behavioral health. A case monitor will call to make sure you have an appointment. I would also recommend that you follow-up with [facility] or another similar agency for assistance with substance abuse. Discharge Date/Time: 11/09/19 10:41 Sign Out Sign Out Data: Patient Sign Out occurred on 11/09/19 at 06:17. Patient's care was discussed, and care was transferred from to Jarret Willams DO. Coding Level of Care Code ED Drier Operator Head for Ronni Fwd Exam Comprehensive
[2019-11-09 05:28] LABS: Basophils # 0.1 10^3/uL (0.0-0.1); Basophils % 0.5 %; Eosinophils # 0.3 10^3/uL (0.0-0.8); Eosinophils % 3.1 %; Hemoglobin 13.7 g/dL (11.7-16.6); Lymphocytes # 2.1 10^3/uL (0.8-4.8); Lymphocytes % 18.8 %; Mean Corpuscular HGB Conc 31.9 g/dL (30.0-36.0); Mean Corpuscular Hemoglobin 27.5 pg (28.0-34.0); Mean Corpuscular Volume 86.3 fL (80-94); Monocytes # 0.8 10^3/uL (0.2-0.9); Monocytes % 6.9 %; Neutrophils # 7.7 10^3/uL (1.8-7.7); Neutrophils % 70.1 %; Nucleated Red Blood Cells % 0 %; Platelet Count 375 10^3/cmm (130-400); Red Blood Count 4.98 10^6/uL (4.1-5.3); Red Cell Distribution Width 14.8 % (12.1-15.1)
[2019-11-09 05:45] LABS: Add Urine Microscopic? NO
[2019-11-09 05:48] LABS: Alanine Aminotransferase 44 U/L (0-41); Albumin Level 4.3 g/dL (3.5-5.2); Alkaline Phosphatase 106 IU/L (40-130); Anion Gap 16.7 (5-19); Aspartate Amino Transferase 37 U/L (0-40); Blood Urea Nitrogen 12 mg/dL (6-20); Calcium 9.4 mg/dL (8.5-10.5); Carbon Dioxide 24 mmol/L (22-29); Chloride 103 mmol/L (98-107); Globulin 3.8 g/dL (1.3-4.6); Glomerular Filtration Rate 102.8 mL/min (90-130); Glucose 91 mg/dL (65-115); Osmolality Calculated 286 mOsm/kg (285-295); Potassium 3.7 mmol/L (3.5-5.1); Sodium 140 mmol/L (136-145); Total Bilirubin 0.3 mg/dL (0.15-1.2); Total Protein 8.1 g/dL (6.6-8.7)
[2019-11-09 05:49] LABS: Bilirubin Urine Neg (NEGATIVE); Blood Urine Neg (Negative); Glucose Urine UA Norm (Normal); Ketones Urine 1+ (Negative); Leukocyte Esterase Urine Negative (Negative); Nitrate Urine Negative (Negative); Protein Urine Neg (Negative); Urine Appearance Clear (CLEAR); Urine Color Yellow (Yellow); Urobilinogen Urine 1 mg/dL (Negative); pH Urine 5 (5-7)
[2019-11-09 05:50] LABS: Acetaminophen < 5.0 ug/mL (10-30); Alcohol Level < 10 mg/dL (0-10); Salicylate < 0.3 mg/dL (3-10)
[2019-11-09 05:57] LABS: Amphetamines Screen Urine Positive (Negative); Barbiturates Screen Urine Negative (Negative); Benzodiazepines Screen Urine Negative (Negative); Cocaine Screen Urine Negative (Negative); Opiate Screen Urine Negative (Negative); PCP Screen Urine Negative (Negative); THC Screen Urine Positive (Negative)
--- NOTE | 2019-11-09 10:34 | PC.NURSE ---
Dr. Dalton at bedside offering admission patient declining admission from Dr. Dalton. Patient to be discharged
--- NOTE | 2019-11-10 14:43 | DCPLANNER ---
manager wound care had message to speak with patient about getting an appointment scheduled at [facility]. manager wound care called [facility] to confirm if patient was a patient at [facility]. manager wound care was told that patient is not currently being seen at [facility], and that clinic has tried to contact patient but have not been able to reach patient. manager wound care was told that [phone] was patients mothers phone number and that she has not spoken with patient.
== END 2019-11-09 10:41 | disposition home or self-care (01) ==
PROVIDERS: Emergency Medicine; Emergency Provider Family Medicine
DX: F15.10 Other stimulant abuse, uncomplicated (principal); F33.3 Major depressive disorder, recurrent, severe with psychotic symptoms; F17.200 Nicotine dependence, unspecified, uncomplicated
CPT/HCPCS: 12345; 71045; 80053; 80306; 80307; 81003; 85025; 93005; 99284